=== PATIENT | male | born 1980 | race Caucasian/White ===

== ENCOUNTER 2023-10-04 20:06 | Inpatient (IN) | payer MEDICAID, OTHER, SELFPAY ==
[2023-10-04] VITALS (27 sets, daily range): BP systolic 133–165; BP diastolic 92–130; BMI 26.6
[2023-10-04] MEDS: DEXTROSE 50% SYRINGE 12.5 GRAMS IV (19:20)
[2023-10-04 19:24] LABS: Glucose - Point of Care 54 mg/dl (70-99)
--- NOTE | 2023-10-04 19:34 | ED.CVA ---
History of Present Illness
General
Chief Complaint: CVA/TIA Symptoms
Time Seen by Provider: 10/04/23 19:01
Onset of Stroke Symptoms
Onset of symptoms known: Yes
Date of onset of symptoms: 10/04/23
Time of onset of symptoms: 15:20
Time pt last seen normal is known: Yes
Date last time pt seen normal: 10/04/23
Time last time pt seen normal: 15:20
History of Present Illness
History of Present Illness:
HPI: Somewhere between 3:20 PM and 3:30 PM today, while talking on the phone at the [facility], the patient developed general unwell feeling including dysarthria, laid down and develop left upper extremity weakness along with
facial droop. The patient came in here by ambulance.
EXAM:
GENERAL: Well appearing in no distress
HEENT: Moist oral mucosa
CARDIOVASCULAR: No murmurs, normal heart rate, regular rhythm, No chest wall tenderness
PULMONARY: No respiratory distress, breath sounds are clear and equal
ABDOMEN: Soft with no peritoneal signs, no tenderness
NEUROLOGIC: Left lower facial droop, mild dysarthria, mild sensory deficits to the left upper extremity and left side of the face, normal [id number] in the right, some effort against gravity in the left upper extremity
PSYCHIATRIC: Appropriate mental status, normal insight and judgement
EXTREMITIES: Nontender, no edema, moves all extremities equally
SKIN: No rash, no lesions
TIME OF INITIAL ENCOUNTER: 7:20 PM
NUMBER AND COMPLEXITY OF PROBLEMS ADDRESSED AT THE ENCOUNTER
� Chronic conditions affecting care: High blood pressure, hyperlipidemia
� Acute Exacerbation and/or Progression of Chronic Illness: This is an acute problem
� Differential Diagnosis includes: CVA, hypoglycemia
AMOUNT AND/OR COMPLEXITY OF DATA TO BE REVIEWED AND ANALYZED
� I performed an independent evaluation of and my interpretation is:
EKG: The patient was sinus on the monitor
CT: CT suggests old right cerebellar infarct
X-rays:
Laboratory Studies: Blood sugar 54, CBC and chemistries unremarkable
Other:
� Review of other/old records: No old records available for review in [facility]
� Clinical information was obtained by an independent historian: Discussed with corrections officers at bedside however they were not there when the symptoms occurred
� Prescriptions/Medications Considered but not given:
� Further testing considered but not performed:
RISK OF COMPLICATIONS AND/OR MORBIDITY OR MORTALITY OF PATIENT MANAGEMENT
� Social determinants of health affecting care: Coming in from [facility]
� Discussion with other providers: I spoke to Dr. Terry agreed to try TNK.
� Escalation of care including admission/observation vs risk of discharge considered: Patient arrives with an NIH stroke scale of 7 TNK use including risks and benefits discussed with patient. Patient verbalized informed
consent. His blood sugar was low at 54 however approximately 15 to 20 minutes after the half amp of D50 was given, his symptoms persist. Noncontrast CT shows an old stroke however the patient states he has never had a stroke in the past.
Phy Exam
Physical Exam
Physical Exam:
See HPI
Course
Orders/Labs/Results
Orders:
Orders
10/04/23 19:01
CT Head W/o Cont STROKE ALERT Urgent
Comment:
Reason For Exam: unilateral weakness
CT Head/Neck Ang STROKE ALERT Urgent
Comment:
Reason For Exam: unilateral weakness
10/04/23 19:23
Dextrose 50%-Water [Dextrose 50% Syringe] 25 grams .ROUTE .STK-MED ONE
10/04/23 19:34
Dextrose 50%-Water [Dextrose 50% Syringe] 12.5 grams IV NOW STA
10/04/23 19:38
Tenecteplase [Tnkase] 21 mg Syringe [Syringe Non-Pump] 0 ml IV NOW
Provider explained risk/benefits to patient &/or caregiver?: Yes
Comment: ORDER VERIFIED
Blood pressure: 164/109
10/04/23 19:42
Electrocardiogram (*1) Urgent
Reason for Study: TIA/Stroke
EKG- Treatment ONCE
10/04/23 19:50
Basic Metabolic Panel Urgent
Complete Blood Count/With Diff Urgent
10/04/23 19:54
Admit/Transfer Patient As Directed
Co-Sign Provider:
Level of Care: Inpatient admission
Assign to:: ICU
Physician / Group: scout
Diagnosis: CVA
Reason for Hospitalization: CVA
Expected length of stay greater than two midnights?: Yes
ELOS- Estimated Length of Stay in days: 2
I certify the patient meets the requirements for IP care: Yes
Code Status As Directed
Resuscitation Status: Full Code
PRN Pain Medication Management As Directed
May give lesser potent ordered pain med per pt: Yes
preference::
Protocol:: Medication orders for pain may be administered in a
manner that supports deferring to patient preference
when the pt is:
- Requesting an ordered lesser potent pain medication.
Least to most potent pain medications are defined
as: acetaminophen < NSAID < tramadol < opioids
(morphine, oxycodone, hydromorphone).
- Requesting a lesser dose of the same medication IF
ORDERED.
- Requesting a less intrusive route of administration
if both routes are prescribed by the provider (PO <
IV).
10/04/23 20:19
Acetaminophen [Tylenol] 650 mg PO Q4HPRN PRN
Labetalol HCl [Trandate] 10 mg IV Q6HPRN PRN
10/04/23 20:19
Echo 2D MMode Color/Doppler Routine
Reason for Study: CVA
Comment: with bubble study
Electrocardiogram (*1) Routine
Reason for Study: TIA/Stroke
DIETARY CONSULT Routine
Reason for Consult: stroke/TIA
NEUROLOGY CONSULT Routine
Consulting Provider: Nya Reed
Was physician already notified: Yes
Glycohemoglobin (HgbA1c) Routine
Comment: If not done in the ED
MR Brain Without Contrast Routine
Comment: complete 24 hrs post tenecteplase admin &/or IAT
Reason For Exam: poss stroke, status post tenecteplase &/or IAT,
Recent pill cam endoscopy?: No
Accucheck [Bedside Glucose Monitoring] As Directed
Frequency: q4h
NIH Stroke Scale As Directed
Directions: Other
Comment: For Tenecteplase: NIH stroke Scale to be completed prior to administration, then every 1 hour for
2 hours, then every shift and with change in condition and/or mental status.
For IAT: NIH stroke scale to be completed at hand off, every 1 hour for 2 hours on arrival to ICU;
then every shift and with change in condition and/or mental status.
Neurological Checks As Directed
Frequency: Per unit guidelines
Additional Instructions:: after start of thrombolytic therapy and/or IAT:
q15min x 2 hrs, q30min x 6 hrs, q1h x 16 hrs, q4h x 24 hrs, then every shift and
with any changes.
Notify MD As Directed
Notify physician if: - Any deterioration, change in neurological status, development of severe headache,
nausea and vomiting, or with any signs of bleeding. (see guidelines for suspected
intracerebral hemorrhage).
- If intracranial hemorrhage is suspected or confirmed by imaging, anticipate need for
osmotic diuretic to maintain euvolemia.
Notify MD As Directed
Notify physician if: Glucose less than 70 or greater than 180.
Anticipate corrective insulin orders.
Notify MD As Directed
Notify physician if: unable to obtain MRI of head within 22-32 hours of tenecteplase administration and/or IAT
- contact Neurology for order for CT of head without contrast
Patient Education As Directed
Type: Stroke education packet
Comment: provide to patient and family
Pneumatic Compression Sleeves As Directed
Type: Knee high
Precautions As Directed
Type of Precautions: Bleeding
Comment: post Bleeding Precaution sign at bedside (if patient received tenecteplase)
Swallow Screening CVA/TIA ONLY As Directed
Comment: NPO until swallow screening completed
If patient FAILS swallow screening:: NPO and Speech consult and aspiration precautions
If patient PASSES swallow screening, diet:: NPO
Thrombolytic Precautions As Directed
Thrombolytic Precautions:: [place] bleeding precautions. Minimize invasive procedures and venipunctures,
avoid IM injections and over-handling patient, and check all puncture sites for
bleeding. Assess the patient and notify provider for signs and symptoms of
internal or serious bleeding, such as changes in vital signs or evidence of blood
in the urine or stool.
Additional instructions: Hemocult all stools.
Apply direct pressure or pressure dressing to any compressible puncture sites.
No ABG sampling or Hale insertion after Tenecteplase administration for 24 hours,
unless directed by the Neurologist/Attending.
Vital Signs As Directed
Frequency: q15m
Call for:: BP greater than 180/105 mmHg or less than 100/60 mmHg
Additional Instructions:: after start of thrombolytic therapy and/or IAT:
q15min x 2 hrs, q30min x 6 hrs, q1h x 16 hrs, q4h x 24 hrs, then every shift and
with any changes.
Ot Eval And Treat Routine
Pt Eval And Treat Routine
Activity Level: As Tolerated
Speech Therapy Eval & Treat Routine
DX Deep Vein Thrombosis Video Routine
10/05/23 06:00
Basic Metabolic Panel IN AM
Cardiovascular Evaluation IN AM
Complete Blood Count/No Diff IN AM
PTT IN AM
Prothrombin Time IN AM
Abnormal Lab Results
10/04/23
19:21
POC Glucose 54 L* mg/dl
(70-99)
10/04/23 19:50
10/04/23 19:50
Vital Signs
Initial and Last Documented VS:
Initial Vital Signs
Temp Pulse Resp BP Pulse Ox
98.5 F 73 16 164/109 100
10/04/23 19:20 10/04/23 19:20 10/04/23 19:20 10/04/23 19:20 10/04/23 19:20
Last Documented Vital Signs
Temp Pulse Resp BP Pulse Ox
98.5 F 64 16 160/112 97
10/04/23 19:20 10/04/23 21:32 10/04/23 21:32 10/04/23 21:32 10/04/23 21:30
*Critical Care Note
Total Time (30-74mins, 75-104mins- exclusive of procedures): 40 minutes
comment:
The patient was sent to CT immediately upon arrival. Upon my initial evaluation he has a structural 7. I had multiple discussions with neurology, Dr. Reed. Ultimately decision was made to give TNK. Glucose was low however despite treatment
with dextrose his symptoms persist. I am concerned for an acute CVA. No hemorrhage seen on initial CT. He was hypertensive upon arrival.
ED Attending Note
-
Portions of this chart may have been created with voice recognition software.� Occasional wrong word or��sound alike� substitutions may have occurred due to the inherent limitations of voice recognition software.
Discharge Plan
Departure
Patient Disposition: Admit
Date of Disposition: 10/04/23
Time of Disposition: 19:38
Presentation/result/management discussed w/ accepting MD/DO: Hospitalist
Discharge Problem:
Acute cerebrovascular accident (CVA)
Interventions
Interventions:
*Risk Screen - Suicide Last Done: 10/04/23 19:20
*General Assessment Last Done: 10/04/23 19:20
*Neglect/Abuse Screening Last Done: 10/04/23 19:20
ED- Fall Risk Assessment Last Done: 10/04/23 19:59
*ED COVID-19 Vaccine History Last Done: 10/04/23 19:41
*Nursing Disposition Last Done: 10/04/23 20:25
ED- Pulmonary Assessment Last Done: 10/04/23 19:58
ED- Neurological Assessment Last Done: 10/04/23 19:29
ED- Cardiac Assessment Last Done: 10/04/23 19:58
Discharge Date and Time
Discharge Date/Time: 10/04/23 20:25
[2023-10-04] MEDS: TNKASE 4.2 MG IV (19:46)
[2023-10-04 19:54] LABS: % Basophils 0.8 % (0-2); % Eosinophils 4.4 % (0-6); % Immature Granulocytes 0.3 % (0-0.5); % Lymphocytes 21.7 % (20.5-51.1); % Monocytes 6.2 % (1.7-9.3); % Neutrophils 66.6 % (42.2-75.2); Absolute Basophils 0.1 10^3/uL (0-0.2); Absolute Eosinophils 0.4 10^3/uL (0-0.7); Absolute Monocytes 0.6 10^3/uL (0.1-0.6); Hematocrit 40.5 % (39.0-52.0); Mean Corp Hgb Conc. 34.6 g/dL (33.0-37.0); Mean Corpuscular Hgb 28.1 pg (27.0-31.0); Mean Corpuscular Volume 81.2 fL (80.0-94.0); Nucleated Red Blood Cells % 0 % (-); Platelet Count 325 10^3/uL (130-400); Red Blood Cell Count 4.99 10^6/uL (4.70-6.10)
--- NOTE | 2023-10-04 20:02 | HPS.HSE ---
Family Physician
-
Family Physician: [facility] [place] [facility] [facility]
Chief Complaint
-
facial droop
History of Present Illness
43-year-old male past medical history of HTN, presenting with headache, difficulty speaking, left upper extremity weakness and left-sided facial droop and drooling at around 3:30 PM today while talking on the phone. He did have some blurriness from
the left eye. He denies any lower extremity weakness or numbness. Denies any dizziness or vertigo. Denies any chest pain or shortness of breath. He denies any history of cardiac problems or stroke.
He smokes 2 packs of cigarettes a day. He used to snort opiates in the past but has not used drugs in more than a year.
He denies alcohol.
No family history of strokes.
He states that he has a history of fluctuating blood pressures.
Medical History
Past Medical History
Past Medical History: Reports HTN
Past Surgical History: Reports Other (clavicle surgery )
Social History
Tobacco: Smoker
Alcohol: None
Drug: Narcotics
Family History
Family History: Not pertinent
Allergies / Home Medications
Allergies reflects when Allergies were last updated in [employer].
Home Medications with original date entered in [employer]
Allergy/Medication List:
Allergies
Allergy/AdvReac Type Severity Reaction Status Date / Time
No Allergy Information Allergy Unverified 10/04/23 19:38
Available
Review of Systems
-
History Source: Patient
A 12 point ROS was completed and negative except as noted: Yes
Constitutional: Reports No Symptoms
EENT: Reports No Symptoms
Respiratory: Reports No Symptoms
Cardiac: Reports No Symptoms
Abdomen/GI: Reports No Symptoms
: Reports No Symptoms
Musculoskeletal: Reports No Symptoms
Skin: Reports No Symptoms
Neurological: Reports See HPI
Endocrine: Reports No Symptoms
Hematologic/Lymphatic: Reports No Symptoms
Psych: Reports No Symptoms
Physical Exam
Vital Signs
Vital Signs
Temp Pulse Resp BP Pulse Ox
98.5 F 77 14 165/103 98
10/04/23 19:20 10/04/23 20:00 10/04/23 20:00 10/04/23 19:47 10/04/23 20:00
Physical Exam
General: Well Developed, Well Nourished and No Apparent Distress
HEENT: NormoCephalic, Moist mucous membranes and Atraumatic
Respiratory: Clear
Cardiac: S1/S2 and Regular Rhythm; No Murmur or Rub
GI: Soft, Non Tender, Non Distended and Normal Bowel Sounds; No Organomegaly
Rectal: Deferred by Provider
Musculoskeletal: No Clubbing, No Cyanosis and No Edema
Skin: No Rash
Neuro: Nonfocal/grossly intact and Other (NIH of at least 5 (left facial droop, left upper extremity weakness, dysarthria, decreased sensation left upper extremity) )
Laboratory Results
-
10/04/23 19:50
Data Reviewed
-
Lab Data: Labs Reviewed by me
Old Records: Reviewed
Impression/Plan
-
IMPRESSION:
PLAN:
# Acute right hemispheric CVA
-Significant left facial droop and weakness of left upper extremity, decreased sensation left upper extremity and dysarthria
-CT head shows focal area of encephalomalacia in the right superior cerebellar hemisphere compatible with old infarction
-TNK being given
-Goal blood pressure under 180/105
-CTA head and neck shows no significant narrowing of the carotid arteries, normal anterior/middle cerebral arteries, small caliber right vertebral, basilar artery
-Check MRI brain
-Check A1c and lipid panel
-Neurochecks per protocol
-Neurology consulted
-Check speech and swallow evaluation,
-Check echo
-N.p.o.
-PT/OT
# Hypoglycemia
-Blood sugar 54
-1/2 Amp of dextrose given, recheck blood sugar
-Accu-Cheks every 2 hours
Essential hypertension
-Continue lisinopril
-As needed as needed labetalol to keep blood pressure under 180
Active smoker
-Nicotine patch
Former opiate user
Full code
DVT prophylaxis�SCDs
N.p.o.
--- NOTE | 2023-10-04 20:03 | PHANOTE ---
med rec kirstin(10/04/23)-[facility] was called for medication list. Attempted to get list over the phone, but decided it was safer to fax list over given clonidine taper. Rest of list pending fax.
[2023-10-04 20:27] LABS: Blood Urea Nitrogen 11 mg/dl (9-20); Calcium 9.5 mg/dl (8.4-10.2); Carbon Dioxide 28 mmol/L (22-30); Chloride 101 mmol/L (98-107); Estimated Creatinine Clearance 108 ml/min; Glucose 87 mg/dl (70-99); Potassium 4.3 mmol/L (3.5-5.1); Sodium 137 mmol/L (135-145); eGFR > 60.00
[2023-10-04 20:38] LABS: Glucose - Point of Care 87 mg/dl (70-99)
--- NOTE | 2023-10-04 22:00 | PTCARENOTE ---
pt arrived to floor via stretcher, able to move from stretcher to bed independently, AAOx4, c/o headache PRN IV tylenol given see MAR, L facial droop and L sided weakness, decreased sensation, see flow sheet, NIH 8 on arrival to ICU, 2 peripheral
EMS lines, RA 95%, denies SOB, NPO, urinal at bedside.
[2023-10-04] MEDS: OFIRMEV 100 IV (22:30)
[2023-10-04 23:49] LABS: Glucose - Point of Care 90 mg/dl (70-99)
[2023-10-05] VITALS (48 sets, daily range): BP systolic 111–168; BP diastolic 68–131; BMI 25.9
[2023-10-05] MEDS: DILAUDID 0.25 MG IV (00:51)
--- NOTE | 2023-10-05 02:13 | PTCARENOTE ---
pt continues to complain about 10/10 headache, pain meds given see MAR, with no relief, CT head ordered and completed, denies chest pain and SOB.
[2023-10-05] MEDS: DILAUDID 0.5 MG IV ×2 (03:32→12:48)
[2023-10-05 03:37] LABS: Hematocrit 38.3 % (39.0-52.0); Hemoglobin 13.5 g/dL (13.0-18.0); Mean Corp Hgb Conc. 35.2 g/dL (33.0-37.0); Mean Corpuscular Hgb 27.8 pg (27.0-31.0); Mean Platelet Volume 9.9 fL (7.4-10.4); Platelet Count 298 10^3/uL (130-400); Red Blood Cell Count 4.85 10^6/uL (4.70-6.10); Red Cell Dist. Width 13.2 % (11.5-14.5); White Blood Cell Count 10.1 10^3/uL (4.8-10.8)
[2023-10-05 03:42] LABS: Glucose - Point of Care 98 mg/dl (70-99)
[2023-10-05 03:50] LABS: APTT 37.4 Sec (23.4-35.0); INR 1.14; PT 14.7 Sec (11.4-14.6)
[2023-10-05 04:01] LABS: Blood Urea Nitrogen 12 mg/dl (9-20); Calcium 9.9 mg/dl (8.4-10.2); Carbon Dioxide 28 mmol/L (22-30); Chloride 105 mmol/L (98-107); Estimated Creatinine Clearance 122 ml/min; Glucose 89 mg/dl (70-99); HDL Cholesterol 35 mg/dl; LDL Cholesterol, Calculated 80 mg/dl; Sodium 140 mmol/L (135-145); Total Cholesterol 146 mg/dl (50-199); Triglyceride 155 mg/dl (10-149); Very Low Density Lipoprotein 31 mg/dl (0-30); eGFR > 60.00
--- NOTE | 2023-10-05 04:17 | PTCARENOTE ---
no changes from prior assessment
--- NOTE | 2023-10-05 07:24 | CON.INTV ---
Consultation
Consultation Request
Date/Time Consultation Requested: 10/05/23
Date/Time Consultation Performed: 10/05/23
Performing Provider: [place]
Reason for Consultation: ICU
Medical History
-
History of Present Illness:
Patient is a 43-year-old male with previous history of hypertension, presenting with left upper extremity and left-sided facial droop. This is associated with headache, difficulty with speaking, blurriness from left eye. CT head obtained
demonstrating old CVA and acute right hemispheric CVA. TNK was delivered in the ER. He is now admitted to ICU for further management.
.
Past Medical History
Past Medical History: Other (see list below)
Social History
Tobacco: Non-smoker
Alcohol: None
Drug: Former User
Family History
Family History: Reviewed & Not Pertinent
Allergies / Home Medications
Allergies
Allergy/AdvReac Type Severity Reaction Status Date / Time
No Known Allergies Allergy Verified 10/04/23 20:21
Home Medications
�Medication �Instructions �Recorded �Confirmed �Last Taken �Type
atorvastatin 40 mg tablet 40 mg PO HS 10/04/23 10/04/23 Unknown History
clonidine HCl mg PO .TAPER 10/04/23 Unknown History
lisinopril 20 mg tablet 20 mg PO DAILY 10/04/23 10/04/23 Unknown History
Review of Systems
-
History Source: Patient
All other systems: Negative unless noted
Vitals / Labs / Diagnostic Testing
Vital Signs
Temp Pulse Resp BP Pulse Ox
98.3 F 57 13 143/93 96
10/04/23 23:24 10/05/23 07:00 10/05/23 07:00 10/05/23 07:00 10/05/23 06:30
Lab Data
10/05/23 03:28
10/05/23 03:28
Laboratory Results
10/05/23
03:28
PT 14.7 H
INR 1.14
APTT 37.4 H
Diagnostic Testing:
Physical Exam
-
HEENT: Normocephalic, Anicteric, Moist Mucous Membranes and Other (facial droop)
Cardiovascular: S1/S2 and Regular Rhythm
Respiratory: Clear and Non-Labored Respirations
GI: Soft, Non Distended and Non Tender
Neurology: Awake, Alert, Oriented and Other (L sided weakness, L sided facial droop with tongue deviation)
Skin: Warm, Dry and Good Color
General: Comfortable and Other (NAD)
Assessment
-
Patient is a 43-year-old male with previous history of hypertension, presenting with left upper extremity and left-sided facial droop. This is associated with headache, difficulty with speaking, blurriness from left eye. CT head obtained
demonstrating old CVA and acute right hemispheric CVA. TNK was delivered in the ER. He is now admitted to ICU for further management.
Acute right hemispheric CVA status post TNK 10/04/2023
Prior old right superior cerebellar CVA with associated encephalomalacia on CT
Acute left-sided facial droop and left upper extremity weakness
Current smoker, 2 packs/day
Hypertensive urgency
Meningioma on CT
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
Hypertension
Hyperlipidemia
History of recreational opiate use
Plan
No current signs of metabolic encephalopathy or MS changes/following commands
Still with L sided weakness, L sided facial droop s/p TNK
CT imaging reviewed, planning for MRI today
Ongoing ROBERTS, 11/28, possible drug seeking behavior
Pain/sedation: tylenol elzbieta, add toradol, would not give further opiate as low dose PRN not working
RASS goals: 0
Hemodynamically stable, not requiring pressors.
Cardiac history reviewed--HTN
No prior ECHO for review, new study pending
Resume home meds, BP parameters
Monitor on telemetry
Oxygen needs: stable on RA
Prior history of lung disease: none known, but is current 2 PPD smoker
Supplemental O2 as indicated to maintain sats > 89%
CXR reviewed indicating no acute disease, has small nodules noted (on my read/await formal read)
Will need CT chest as OP
NPO, resume diet when able
Senior Storage Engineer recommendations
Aspiration precautions, HOB > 30 degrees
Speech therapy eval can be considered if at elevated risk
GI prophylaxis if indicated for mechanical ventilation >48 hours, prior history of GERD, stress ulcer formation in the critically ill
Creat at baseline, no history of renal disease
Void trials
Follow urine output, critical I/Os
Replete electrolytes as needed
No signs/symptoms suspicious for infectious etiology at this time
Observe off antibiotics for now
Follow fever trend, WBC count
CBC stable, no signs of bleeding or coagulopathy.
DVT prophylaxis as assessed based on risk, including mechanical SCDs
Can transfuse if indicated for Hb <7, plt < 10
No prior h/o diabetes or thyroid disease
Monitor accuchecks PRN/SS coverage if needed
We will follow
Diagnostic Data
Chest X-Ray: NAD, small calcified areas on LLLs
CT Scan: HEAD 10/05/23 - No acute abnormality or substantial interval change since 10/04/2023. Stable extra-axial mass in the left frontotemporal region which is favored to represent a small meningioma.
H&N 10/04/23- No significant narrowing of the common carotid arteries, carotid bulbs, or cervical internal carotid arteries bilaterally. Calcification of the cavernous internal carotid arteries bilaterally, left greater than right. No evidence for
hemodynamically significant stenosis. Normal appearance of the anterior cerebral and middle cerebral arteries bilaterally.
Dominant left vertebral artery with small caliber right vertebral artery, with the right vertebral artery terminating as the posterior inferior cerebellar artery. As there is evidence for old right cerebellar hemisphere infarct on unenhanced CT,
question whether findings in the right vertebral artery could be from previous dissection.
Dominant left vertebral artery with no significant narrowing. Relatively small caliber basilar artery with no significant narrowing. The posterior cerebral arteries are mainly supplied from posterior communicating arteries, and the posterior
cerebral arteries appear within normal limits.
There is an enhancing extra-axial mass in the left anterolateral frontal lobe, which is likely a small meningioma. Consider follow-up imaging with CT or MRI of the head/brain without and with contrast.
Head 10/03- Focal area of encephalomalacia in the right superior cerebellar hemisphere, compatible with old infarction. No evidence for acute intracranial abnormality.
Echo:
PFT's:
Reports and relevant images were personally reviewed.
-----
Critical Care time 56 mins -- The patient is admitted for acute critical illness for the treatment of vital organ failure and/or prevention of further life-threatening conditions. Total care includes time spent in review of history, physical exam,
medications, hemodynamic/ventilator parameters, laboratory data, imaging and discussion with house staff, pharmacy, respiratory therapy, typewriter ribbon winder, and nursing.
--- NOTE | 2023-10-05 07:30 | PTCARENOTE ---
0700 seen in bed. NIH 8 . VSS NPO until clear by ST
[2023-10-05 08:46] LABS: Glucose - Point of Care 91 mg/dl (70-99)
--- NOTE | 2023-10-05 09:30 | CON.NEURO4 ---
Addendum entered and electronically signed by Nya Reed, 10/05/23 21:45:
Changed order to rectal ASA as patient is still NPO.
Addendum entered and electronically signed by Nya Reed, DO 10/05/23 21:42:
Echo showed:
Interatrial septum is intact with no evidence of shunting by Bubble study or
color flow Doppler. The IVC is of normal size and demonstrates normal
respiratory variation. No intracardiac mass or thrombus formation seen.
MRI still pending.
Will start DAPT now as exam has been stable.
Original Note:
Consultation - Neurology 4
-
CONSULTING PHYSICIAN: Derek
REFERRING PHYSICIAN: ER
DICTATED BY: Derek
DATE/TIME OF REQUEST: 10/04/23 in the evening
DATE/TIME OF CONSULTATION: 10/05/23 at 9am
Reason for Consultation: stroke alert
History of Present Illness:
43-year-old male with a past medical history of drug use, hypertension and possible hyperlipidemia is currently incarcerated brought in as a stroke alert yesterday after experiencing abrupt onset of dysarthria, left upper extremity weakness and left
facial droop around 3:20 or 3:30 PM today while talking on the phone to his grandchildren. He states that just prior to onset of his symptoms he was speaking normally. Chronic right superior cerebellar hemisphere infarct was seen on head CT
patient states that he was not aware of this and never had similar symptoms in the past. He states that he has never had any imaging done of his brain for comparison. No family history of AZ or stroke. No history of endocarditis. He denies any
IV drug use and records indicate that he snorted opiates in the past. Last drug use was about 14 months ago. He received TNK in the ED and reports that his symptoms are now better. He also has a headache. Repeat head CT done around 130 this
morning was stable. He denies any past history of headaches. He also denies any history of dissection.
Past Medical History: HTN, denies HLD but is on a statin, chronic stroke on HCT of which patient was not aware, small meningioma seen on HCT as well
Past Surgical History: clavicle surgery
Social History
Tobacco: Smoker
Alcohol: None
Drug: Narcotics--reports he snorted opiates; denies IVDA
Family History
Family History: denies any family history of stroke or AZ/CAD
Allergies
No Known Allergies Allergy (Verified 10/04/23 20:21)
Home Medications
�Medication �Instructions �Recorded
atorvastatin 40 mg tablet 40 mg PO HS 10/04/23
clonidine HCl mg PO .TAPER 10/04/23
lisinopril 20 mg tablet 20 mg PO DAILY 10/04/23
Review of Symptoms:
Patient denies any fever, headache, chest pain, shortness of breath, GI or symptoms.
�Per the HPI.�All systems are reviewed negative except above.
Vital Signs
Temp Pulse Resp BP Pulse Ox
98.0 F 70 14 143/93 97
10/05/23 07:30 10/05/23 07:15 10/05/23 07:15 10/05/23 07:01 10/05/23 07:15
Lab Results
10/05/23 03:28
10/05/23 03:28
PT 14.7 Sec (11.4-14.6) H 10/05/23 03:28
INR 1.14 10/05/23 03:28
APTT 37.4 Sec (23.4-35.0) H 10/05/23 03:28
Sodium 140 mmol/L (135-145) 10/05/23 03:28
Potassium 4.0 mmol/L (3.5-5.1) 10/05/23 03:28
BUN 12 mg/dl (9-20) 10/05/23 03:28
Glucose 89 mg/dl (70-99) 10/05/23 03:28
Calcium 9.9 mg/dl (8.4-10.2) 10/05/23 03:28
LDL Cholesterol, Calc 80 mg/dl 10/05/23 03:28
Physical Exam:
The patient is afebrile, heart sounds S1 and S2 are regular , and chest is clear to auscultation bilaterally.
NIH Stroke Scale:
I performed the NIH stroke scale on the patient on 10/05/23 at 900. The patient scored 8 points on the NIH stroke scale assessment, which were assigned as follows: see attached
Neurologic Examination:
The patient is awake, alert and oriented x 3. He is able to follow commands and answer questions appropriately. There is no aphasia; reports some mild dysarthria compared to baseline speech. On cranial nerve assessment, pupils are 3 mm bilateral,
round and reactive to light and accommodation. Visual beard are full. Extraocular movements are intact. Reports diminished sensation on R forehead. +Mild L facial weakness--central. Hearing is intact bilaterally to normal conversation volume.
Tongue palate and uvula are midline. Sternocleidomastoid strengths are full bilaterally. Some giveaway weakness in LUE--unclear if component of diminished effort; 2/5 in LUE, 2-3/5 in LLE. R side full. Deep tendon reflexes are 2+ bilateral upper
and lower extremities and Babinski is absent bilaterally. Sensations of touch, temperature are intact and bilaterally symmetrical. There was no extinction noted on double simultaneous stimulation. Coordination is intact by finger to nose in RUE;
could not test LUE due to severity of weakness.
Neuro Imaging:
Initial HC, 10/03
Focal area of encephalomalacia in the right superior cerebellar hemisphere, compatible with old infarction.
No evidence for acute intracranial abnormality.
F/u HCT done early this AM (1:30) due to patient headache:
No acute abnormality or substantial interval change since 10/04/2023. Stable extra-axial mass in the left frontotemporal region which is favored to represent a small meningioma.
CTA head/neck:
No significant narrowing of the common carotid arteries, carotid bulbs, or cervical internal carotid arteries bilaterally.
Calcification of the cavernous internal carotid arteries bilaterally, left greater than right. No evidence for hemodynamically significant stenosis.
Normal appearance of the anterior cerebral and middle cerebral arteries bilaterally.
Dominant left vertebral artery with small caliber right vertebral artery, with the right vertebral artery terminating as the posterior inferior cerebellar artery. As there is evidence for old right cerebellar hemisphere infarct on unenhanced CT,
question whether findings in the right vertebral artery could be from previous dissection.
Dominant left vertebral artery with no significant narrowing. Relatively small caliber basilar artery with no significant narrowing. The posterior cerebral arteries are mainly supplied from posterior communicating arteries, and the posterior
cerebral arteries appear within normal limits.
There is an enhancing extra-axial mass in the left anterolateral frontal lobe, which is likely a small meningioma.
Impression:
LUISA KRAUS is a 43 year old M who has presented to the hospital with dysarthria, facial weakness and L sided weakness of abrupt onset yesterday at 3:20PM while talking on the phone. HCT showed evidence of a chronic stroke of which was not
aware/never had symptoms. Reports that he has never had any prior cranial imaging for comparison. Has a history of drug use; states no drug use in about 14 months. Denies any past IVDA.
Differentials for the patient's presentation include:
1. acute ischemic stroke; etiology unclear; no fever, denies IVDA; reports no drug use in general in about 14 months; has htn, ?HLD and smoking history in terms of vascular risk factors
2. hypertensive urgency/hypoglycemia causing stroke recrudescence; chronic stroke seen on HCT of which patient was not aware
Patient has the following risk factors for their symptoms: htn, hld
IV Tenecteplase/IAT candidacy: received TNK, no LVO for IAT
Recommendations:
� place the patient in medical ICU
� goal blood pressure over the next 24 hours s/p TNK would be less than 180/105 mmHg; after which time goal is normotension
� check MRI of the brain within 22-32 hours of TNK without contrast for localization of the stroke; will do this w/wo give ?meningioma
reviewed CTA; see above
� hold all antiplatelets, OAC meds, DOAC meds, heparinoids for next 24 hours; can start DAPT at 24 hour tali if MRI negative for bleed
� start atorvastatin 80 mg at bedtime when patient is able to take PO; LDl is 80 on atorvastatin 40mg as outpatient
� goal blood glucose levels for patient would be less than 180 mg/dL
� Speech, PT, OT evaluations needed
� Physiatry consultation warranted
� DVT prophylaxis with sequential compression devices over next 24 hours, can be started on Enoxaparin subcutaneous for DVT prophylaxis beginning 24 hours after TNK provision.
� medical educational materials will be provided
� check an echocardiogram; low threshold of NIRAV given age depending upon results
continue telemetry monitoring
� smoking cessation
Total Critical Care Time= 65 minutes.
Also discussed with family.
We will follow.
Discussed patient care with: ER, patient
NIH Stroke Scale
NIH Stroke Score
Date of Subsequent NIH Scale: 10/05/23
Time of Subsequent NIH Scale: 09:00
Level of Consciousness: 0 - Alert
LOC Questions: 0-Answers both correctly
LOC Commands: 0-Performs both correctly
Best Horizontal Gaze: 0-Normal
Visual Beard: 0=Normal, no visual loss
Facial Palsy: 1=Minor paralysis
Motor - Right Arm: 0=No drift 10 seconds
Motor - Left Arm: 3=None vs. gravity
Motor - Right Le-No drift 5 seconds
Motor - Left Le-Partial vs. gravity
Limb Ataxia: 0-Absent
Sensation: 1-Mild loss
Best Language: 0-No aphasia
Dysarthria: 1-Mild slurring
Extinction and Inattention: 0-No abnormality
Total Score:: 8
[2023-10-05] MEDS: OFIRMEV 100 IV (09:48)
[2023-10-05 10:12] LABS: Glycohemoglobin (HgbA1c) 5.3 % (4.0-5.6)
--- NOTE | 2023-10-05 11:28 | CM ---
CM following re: discharge planing.
Reviewed pt's chart, met with pt. Two security guards at bedside.
Pt is a 43 year old male, admitted with primary dx of Acute right hemispheric CVA.
Pt is admitted from [facility] and per guards pt will return back there upon the discharge.
[facility] nursing report: [phone]
Discharge instructions fax: [phone]
D/C plan: return back to [facility]. Guards to transport.
--- NOTE | 2023-10-05 11:39 | PTOTSP ---
SPEECH THERAPY SWALLOW AND SPEECH/LANGUAGE/COGNITIVE COMMUNICATION EVALUATION:
Patient exhibits grossly functional oropharyngeal swallow at this time. No history of dysphagia noted. Patient remains at risk for aspiration and related complications give suspected acute CVA and Left sided oral/lingual/labial weakness. Recommend
Regular texture solids, thin liquids. Medications whole with liquid as best tolerated. Aspiration precautions: Upright positioning; Small single sips/bites; Slow rate of intake; Check for pocketing on Left; Finger/lingual sweep as needed; Chew
thoroughly. Monitor for signs/symptoms of aspiration. Speech therapy to follow, assess diet tolerance and modify as appropriate, determine indication for VSE if warranted, provide education regarding aspiration risks/precautions, and provide
continued diagnostic swallow therapy as appropriate.
Patient exhibits mild dysarthria related to Left sided lingual/labial and oromotor weakness with grossly functional intelligibility; Expressive/receptive language and cognitive communication skills appeared grossly intact at this time. Patient
reported he feels at baseline level of functioning cognitively. Speech therapy to follow for dysarthria treatment and further assessment of higher level cognitive functioning.
RECOMMEND:
1) Regular texture diet, thin liquids
2) Medications whole with liquid as best tolerated
3) Aspiration precautions: Upright positioning; Small single sips/bites; Slow rate of intake; Check for pocketing on Left; Finger/lingual sweep as needed; Chew thoroughly. Monitor for signs/symptoms of aspiration
4) ST to follow for swallow and speech therapy
[2023-10-05] MEDS: COMPAZINE 5 MG IV (11:49)
--- NOTE | 2023-10-05 13:35 | PTCARENOTE ---
patient in bed . Able to tolerate food and fluids without difficulties. no change in Neuro check and NIH noted . Still noting left site facial droop, unable to lift left arm and left leg. c/o of headache bilateral 10 out 10 pain scale level .
Describes pain in a from and back of his head , aching. Compazine + Dilaudid 0.5 adm with no pain relieve BP 125/100 HR 74.
[2023-10-05] MEDS: REGLAN 10 MG IV (14:20)
[2023-10-05] MEDS: TORADOL 15 MG IV (14:20)
--- NOTE | 2023-10-05 14:22 | PTCARENOTE ---
c/of head pain front and back pain scale level 7 out of 10. Reglan and Toradol adm . No change in neuro check noted
--- NOTE | 2023-10-05 15:42 | W.PN.HOSP.TC ---
Today's Communication/Plan
-
MRI - DAPT most likely thereafter
Reg diet
close tele monitoring
remain in icu today
Assessment / Plan
Assessment / Plan
# Acute right hemispheric CVA s/p TNK 10/03
-Significant left facial droop and weakness of left upper extremity, decreased sensation left upper extremity and dysarthria
-CT head shows focal area of encephalomalacia in the right superior cerebellar hemisphere compatible with old infarction
-Goal blood pressure under 180/105
-CTA head and neck shows no significant narrowing of the carotid arteries, normal anterior/middle cerebral arteries, small caliber right vertebral, basilar artery
-Check MRI brain; DAPT after if no major bleeding
-Check A1c:: 5.3 and LDL 80
-statin
-Neurochecks per protocol
-Neurology consulted
-PT/OT
Essential hypertension
-As needed as needed labetalol to keep blood pressure under 180
Active smoker
-Nicotine patch
Former opiate user
Full code
DVT prophylaxis�SCDs
Anticipated Discharge: > 48 hours
Subjective/Interval History
-
Date of Service: October 05, 2023
No acute events status post TNK
Objective Data
-
Labs:
Laboratory Results
10/05/23
03:28
PT 14.7 H
INR 1.14
APTT 37.4 H
Sodium 140
Potassium 4.0
Chloride 105
Carbon Dioxide 28
BUN 12
Creatinine 0.8
Glucose 89
Calcium 9.9
Vital Signs:
Vital Signs
Temp Pulse Resp BP Pulse Ox
98.0 F 84 20 168/114 98
10/05/23 07:30 10/05/23 15:15 10/05/23 15:15 10/05/23 15:00 10/05/23 15:15
I&O
10/04/23 10/05/23 10/06/23
06:59 06:59 06:59
Intake Total 0 / 0
Output Total 600 / 600 500 / 500
Balance -600 / -600 -500 / -500
Review of Systems
-
History Source: Patient
All other systems: Not reviewed unless documented
Data Reviewed
-
Diagnostic Radiology: Image personally visualized and interpreted and Report Reviewed by me
CT Scan: Image personally visualized and interpreted and Report Reviewed by me
Labs: Labs Reviewed by me
--- NOTE | 2023-10-05 16:05 | PTCARENOTE ---
Spoke to [facility] medical staff . Been reported that patient received Soboxone 12mg x 2 days; 8mg x 2 days; 4mg x 2 days and 2mg x 2 days Last dose of Sobaxone was received on 10/01 . Clonidine x 1 dose received on 10/03 .
patient have been asking for dose of Sobaxone every 30 mint to every hour. Stating that he feels as ' he is going through withdrawal '
[2023-10-05] MEDS: SUBUTEX 4 MG SL ×2 (16:54→22:49)
[2023-10-05] MEDS: TYLENOL 1000 MG PO (17:01)
[2023-10-05 17:08] LABS: Amphetamines Negative (Negative); Barbiturates Negative (Negative); Benzodiazepines Negative (Negative); Buprenorphine Positive (Negative); Cocaine Negative (Negative); Marijuana Negative (Negative); Methadone Negative (Negative); Methamphetamines Negative (Negative); Opiates Positive (Negative); Phencyclidine Negative (Negative); Tricyclic Antidepressants Negative (Negative)
[2023-10-05 17:14] LABS: Fentanyl, Urine Negative (Negative)
[2023-10-05] MEDS: TRANDATE 10 MG IV (17:14)
[2023-10-05 18:13] LABS: Glucose - Point of Care 138 mg/dl (70-99)
--- NOTE | 2023-10-05 18:16 | PTCARENOTE ---
patient in bed. Labetolol given earlier for BP 165/112 . ECG done Urine toxic screen send results pending . patient denies headache no change in Neuro check noted MRI schedule for 2100
--- NOTE | 2023-10-05 20:20 | PTCARENOTE ---
Received patient AAOx3, following commands, denying pain. Left facial droop, left arm/leg flaccid, can wiggle fingers and toes. Decreased sensation on left side. NIH handoff done, 9. MRI at 2100. Normal sinus, 70s, BP stable, 150s-160s/80s-90s. 97%
on room air, lung sounds clear throughout, diminished in the bases. Abdomen soft, round, nontender, positive bowel sounds. Urinal to void, no BM yet this admission. Skin intact, PIV WNL, patent. Call lozoya within reach.
[2023-10-05] MEDS: TYLENOL PO ×2 (22:47→22:51)
[2023-10-05] MEDS: LOW STRENGTH ASPIRIN 81 MG PO (23:18)
--- NOTE | 2023-10-05 23:21 | PTCARENOTE ---
Transported patient to and from MRI without any issues. MRI read, neuro notified, aspirin started. PRN subutex given. Otherwise patient assessment unchanged from previous.
[2023-10-06] VITALS (16 sets, daily range): BP systolic 107–152; BP diastolic 64–103; PULSE 70–71; O2SAT 99; BMI 26.1
[2023-10-06] MEDS: SUBUTEX 4 MG SL ×2 (04:56→11:11)
[2023-10-06] MEDS: TYLENOL PO ×3 (05:14→17:18)
[2023-10-06 05:45] LABS: ALT (SGPT) 15 U/L (0-50); AST (SGOT) 17 U/L (17-59); Alkaline Phosphatase 70 U/L (38-126); Blood Urea Nitrogen 13 mg/dl (9-20); Calcium 9.8 mg/dl (8.4-10.2); Carbon Dioxide 27 mmol/L (22-30); Chloride 104 mmol/L (98-107); Direct Bilirubin 0.1 mg/dl (0.0-0.4); Estimated Creatinine Clearance 108 ml/min; Glucose 98 mg/dl (70-99); Potassium 4.2 mmol/L (3.5-5.1); Sodium 140 mmol/L (135-145); Total Bilirubin 0.5 mg/dl (0.2-1.3); Total Protein 6.2 g/dl (6.3-8.2); eGFR > 60.00
--- NOTE | 2023-10-06 07:24 | W.PN.INTV ---
Today's Communication / Plan
Recommendations
s/p TNK, MRI stable
Continue meds for ROBERTS pain
Opiate w/d protocol
PT/OT, speech evals ongoing
Transfer to tele, we will sign off upon transfer
Assessment
-
Patient is a 43-year-old male with previous history of hypertension, presenting with left upper extremity and left-sided facial droop. This is associated with headache, difficulty with speaking, blurriness from left eye. CT head obtained
demonstrating old CVA and acute right hemispheric CVA. TNK was delivered in the ER. He is now admitted to ICU for further management.
Acute right hemispheric CVA status post TNK 10/04/2023
Prior old right superior cerebellar CVA with associated encephalomalacia on CT
Acute left-sided facial droop and left upper extremity weakness
Current smoker, 2 packs/day
Hypertensive urgency
Meningioma on CT
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
Hypertension
Hyperlipidemia
History of recreational opiate use
Plan
No current signs of metabolic encephalopathy or MS changes/following commands
Still with L sided weakness, L sided facial droop s/p TNK
CT imaging reviewed, MRI stable
Ongoing ROBERTS, 11/28, no further opiates
Pain/sedation: tylenol elzbieta, add toradol, would not give further opiate as low dose PRN not working
Opiate w/d protcol continued
RASS goals: 0
Hemodynamically stable, not requiring pressors.
Cardiac history reviewed--HTN
No prior ECHO for review, new study pending
Resume home meds, BP parameters
Monitor on telemetry
Oxygen needs: stable on RA
Prior history of lung disease: none known, but is current 2 PPD smoker
Supplemental O2 as indicated to maintain sats > 89%
CXR reviewed indicating no acute disease, has small nodules noted (on my read/await formal read)
Will need CT chest as OP
Diet advancement per speech
Veterinary Virologist recommendations
Aspiration precautions, HOB > 30 degrees
GI prophylaxis if indicated
Creat at baseline, no history of renal disease
Void trials
Follow urine output, critical I/Os
Replete electrolytes as needed
No signs/symptoms suspicious for infectious etiology at this time
Observe off antibiotics for now
Follow fever trend, WBC count
CBC stable, no signs of bleeding or coagulopathy.
DVT prophylaxis as assessed based on risk, including mechanical SCDs
Can transfuse if indicated for Hb <7, plt < 10
No prior h/o diabetes or thyroid disease
Monitor accuchecks PRN/SS coverage if needed
Diagnostic Data
Chest X-Ray: NAD, small calcified areas on LLLs
CT Scan: HEAD 10/05/23 - No acute abnormality or substantial interval change since 10/04/2023. Stable extra-axial mass in the left frontotemporal region which is favored to represent a small meningioma.
H&N 10/04/23- No significant narrowing of the common carotid arteries, carotid bulbs, or cervical internal carotid arteries bilaterally. Calcification of the cavernous internal carotid arteries bilaterally, left greater than right. No evidence for
hemodynamically significant stenosis. Normal appearance of the anterior cerebral and middle cerebral arteries bilaterally.
Dominant left vertebral artery with small caliber right vertebral artery, with the right vertebral artery terminating as the posterior inferior cerebellar artery. As there is evidence for old right cerebellar hemisphere infarct on unenhanced CT,
question whether findings in the right vertebral artery could be from previous dissection.
Dominant left vertebral artery with no significant narrowing. Relatively small caliber basilar artery with no significant narrowing. The posterior cerebral arteries are mainly supplied from posterior communicating arteries, and the posterior
cerebral arteries appear within normal limits.
There is an enhancing extra-axial mass in the left anterolateral frontal lobe, which is likely a small meningioma. Consider follow-up imaging with CT or MRI of the head/brain without and with contrast.
Head 10/03- Focal area of encephalomalacia in the right superior cerebellar hemisphere, compatible with old infarction. No evidence for acute intracranial abnormality.
Echo:
PFT's:
Reports and relevant images were personally reviewed.
-----
Critical Care time 31 mins -- The patient is admitted for acute critical illness for the treatment of vital organ failure and/or prevention of further life-threatening conditions. Total care includes time spent in review of history, physical exam,
medications, hemodynamic/ventilator parameters, laboratory data, imaging and discussion with house staff, pharmacy, respiratory therapy, production support engineer, and nursing.
Subjective Dataa
Subjective Data
Date of Service:
Date of Service: October 06, 2023
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
Subjective:
no events ON, remains stable
still has ROBERTS, slightly better with meds
slight improvement on LUE movement, side to side
Objective Data
Data Reviewed
Vital Signs / I&O / Oxygen:
Vital Signs
Temp Pulse Resp BP Pulse Ox
98.7 F 51 13 129/83 98
10/06/23 07:21 10/06/23 06:00 10/06/23 06:00 10/06/23 06:00 10/06/23 06:00
Intake and Output
10/05/23 10/06/23 10/07/23
06:59 06:59 06:59
Intake Total 0 / 0
Output Total 600 / 600 850 / 850
Balance -600 / -600 -850 / -850
SaO2 98
Physical Exam
General: Comfortable and Other (NAD)
HEENT: Normocephalic, Anicteric and Moist Mucous Membranes
Cardiovascular: S1-S2 and Regular Rhythm
Respiratory: Clear and Non-Labored Respirations
GI: Soft, Non Distended and Non Tender
Neurology: Awake, Alert, Oriented and Other (L sided weakness, L sided facial droop)
Skin: Warm, Dry and Good Color
Labs/Micro/Reports
Lab Data
10/05/23 03:28
10/06/23 04:47
[2023-10-06] MEDS: LOW STRENGTH ASPIRIN 81 MG PO (08:32)
--- NOTE | 2023-10-06 08:48 | PTCARENOTE ---
report received, assessments per work list. denies pain, handoff NIH per work list
--- NOTE | 2023-10-06 10:53 | PTCARENOTE ---
. worked with PT, stood at bedside. transfer to [facility], hand off [facility] [[email or web address]] unchanged
--- NOTE | 2023-10-06 12:58 | W.PN.NEURO.1 ---
Addendum entered and electronically signed by Nya Reed DO 10/06/23 14:15:
Also needs outpatient f/u with neurosurgery regarding meningioma.
Original Note:
Today's Communication / Plan
-
continue asa 81mg daily indefinitely given chronic stroke on imaging; continue atorvastatin
would benefit from complete stroke workup as an outpatient; does not need to stay in the hospital for this as this event was not an acute stroke, but he has had one in the past--should see cardiology for possible NIRAV, Linq; should see hematology
for hypercoagulable workup and vascular neurosurgery given ? old vertebral dissection on imaging
Neuro Assessment/Plan
Assessment
Neuro Imaging:
Initial HCT, 10/03
Focal area of encephalomalacia in the right superior cerebellar hemisphere, compatible with old infarction.
No evidence for acute intracranial abnormality.
F/u HCT done early this AM (1:30) due to patient headache:
No acute abnormality or substantial interval change since 10/04/2023. Stable extra-axial mass in the left frontotemporal region which is favored to represent a small meningioma.
CTA head/neck:
No significant narrowing of the common carotid arteries, carotid bulbs, or cervical internal carotid arteries bilaterally.
Calcification of the cavernous internal carotid arteries bilaterally, left greater than right. No evidence for hemodynamically significant stenosis.
Normal appearance of the anterior cerebral and middle cerebral arteries bilaterally.
Dominant left vertebral artery with small caliber right vertebral artery, with the right vertebral artery terminating as the posterior inferior cerebellar artery. As there is evidence for old right cerebellar hemisphere infarct on unenhanced CT,
question whether findings in the right vertebral artery could be from previous dissection.
Dominant left vertebral artery with no significant narrowing. Relatively small caliber basilar artery with no significant narrowing. The posterior cerebral arteries are mainly supplied from posterior communicating arteries, and the posterior
cerebral arteries appear within normal limits.
There is an enhancing extra-axial mass in the left anterolateral frontal lobe, which is likely a small meningioma.
MRI brain showed:
No acute intracranial abnormality. Encephalomalacia within the right cerebellar hemisphere.
1.7 cm homogeneously enhancing, dural based extra axial lesion along the anterolateral left frontal lobe, consistent with meningioma. There is very mild associated mass effect.
Echo: no CSE
Impression:
LUISA KRAUS is a 43 year old M who has presented to the hospital with dysarthria, facial weakness and L sided weakness of abrupt onset yesterday at 3:20PM while talking on the phone. HCT showed evidence of a chronic stroke of which was not
aware/never had symptoms. Reports that he has never had any prior cranial imaging for comparison. Has a history of drug use; states no drug use in about 14 months. Denies any past IVDA. Received TNK and has not improved beyond some waxing and
waning of LLE weakness which overnight nursing coorelated with improvement in his headaches.
Differentials for the patient's presentation include:
1. malingering vs conversion disorder vs complicated migraine
2. hypertensive urgency/hypoglycemia causing stroke recrudescence (less likely given location); chronic stroke seen on HCT of which patient was not aware
Plan
Recommendations:
started ASA RC last night after MRI read; can start ASA 81mg daily as cleared for PO now
�start atorvastatin 80 mg at bedtime; LDl is 80 on atorvastatin 40mg as outpatient
�goal blood glucose levels for patient would be less than 180 mg/dL
�Speech, PT, OT evaluations
�Physiatry consultation
if this is conversion d/o, the treatment is psychotherapy
�can be started on Enoxaparin subcutaneous for DVT prophylaxis
�smoking cessation
reviewed s/s of stroke, importance of calling 911/alerting guards if this recurs after d/c
would benefit from complete stroke workup as an outpatient; does not need to stay in the hospital for this as this event was not an acute stroke, but he has had one in the past--should see cardiology for possible NIRAV, Linq; should see hematology
for hypercoagulable workup and vascular neurosurgery given ? old vertebral dissection on imaging
continue Tylenol, Compazine for headache abortive therapy; reports this is working well; no narcotics; could consider headache preventative as an outpatient
Neurology is signing off. Plan discussed with patient, Dr. Vazquez.
Needs outpatient f/u with neurology in 1-2 mos.
Subjective/Objective
Subjective Data
Date of Service: October 06, 2023
patient reports fluctuating degrees of LLE weakness; otherwise symptoms unchanged; ROBERTS currently improved
Objective Data
Vital Signs
Temp Pulse Resp BP Pulse Ox
98.6 F 71 16 141/93 97
10/06/23 10:51 10/06/23 10:51 10/06/23 10:51 10/06/23 10:51 10/06/23 10:51
Lab Results
10/05/23 03:28
10/06/23 04:47
PT 14.7 Sec (11.4-14.6) H 10/05/23 03:28
INR 1.14 10/05/23 03:28
APTT 37.4 Sec (23.4-35.0) H 10/05/23 03:28
Sodium 140 mmol/L (135-145) 10/06/23 04:47
Potassium 4.2 mmol/L (3.5-5.1) 10/06/23 04:47
BUN 13 mg/dl (9-20) 10/06/23 04:47
Glucose 98 mg/dl (70-99) 10/06/23 04:47
Calcium 9.8 mg/dl (8.4-10.2) 10/06/23 04:47
LDL Cholesterol, Calc 80 mg/dl 10/05/23 03:28
Ur Buprenorphine Positive (Negative) H 10/05/23 16:48
Patient Allergies
No Known Allergies Allergy (Verified 10/04/23 20:21)
Physical Exam
-
The patient is awake, alert and oriented x 3. He is able to follow commands and answer questions appropriately. There is no aphasia; reports some mild dysarthria compared to baseline speech but I do not notice any on exam. On cranial nerve
assessment, pupils are 3 mm bilateral, round and reactive to light and accommodation. Visual beard are full. Extraocular movements are intact. ?mild L facial weakness--central--could be his baseline. Hearing is intact bilaterally to normal
conversation volume. Tongue palate and uvula are midline. Sternocleidomastoid strengths are full bilaterally. LUE 1-2, LLE 1-2 proximally, moves toes. R side full. Deep tendon reflexes are 2+ bilateral upper and lower extremities and Babinski is
absent bilaterally. Sensations of temperature were inconsistent. Coordination is intact by finger to nose in RUE; could not test LUE due to severity of weakness.
--- NOTE | 2023-10-06 13:02 | W.PN.HOSP.TC ---
Today's Communication/Plan
-
PT/OT - acute rehab
DVT ppx
Assessment / Plan
Assessment / Plan
# Possible Acute right hemispheric CVA s/p TNK 10/03
-Significant left facial droop and weakness of left upper extremity, decreased sensation left upper extremity and dysarthria
-CT head shows focal area of encephalomalacia in the right superior cerebellar hemisphere compatible with old infarction
-Goal normotension
-CTA head and neck shows no significant narrowing of the carotid arteries, normal anterior/middle cerebral arteries, small caliber right vertebral, basilar artery
-MRI brain negative; DAPT after if no major bleeding
-Check A1c:: 5.3 and LDL 80
-statin
-Neurochecks per protocol
-Neurology recs
-PT/OT
#1.7 cm homogeneously enhancing, dural based extra axial lesion along the anterolateral left frontal lobe, consistent with meningioma.
-f/u outpatient
Essential hypertension
-goal normotension
Active smoker
-Nicotine patch
Former opiate user
-requested subutex
-icu provider rxed - will not continue outpatient - patient was supposed to be weaned off
Full code
DVT prophylaxis�HSQ
Anticipated Discharge: 24 - 48 hours
Subjective/Interval History
-
Date of Service: October 06, 2023
MR stable, no evidence of stroke
Speech eval, PT/OT
Objective Data
-
Labs:
Laboratory Results
10/06/23
04:47
Sodium 140
Potassium 4.2
Chloride 104
Carbon Dioxide 27
BUN 13
Creatinine 0.9
Glucose 98
Calcium 9.8
Total Bilirubin 0.5
AST 17
ALT 15
Alkaline Phosphatase 70
Vital Signs:
Vital Signs
Temp Pulse Resp BP Pulse Ox
98.6 F 71 16 141/93 97
10/06/23 10:51 10/06/23 10:51 10/06/23 10:51 10/06/23 10:51 10/06/23 10:51
I&O
10/05/23 10/06/23 10/07/23
06:59 06:59 06:59
Intake Total 0 / 0 480 / 480
Output Total 600 / 600 850 / 850 450 / 450
Balance -600 / -600 -850 / -850 30 / 30
Review of Systems
-
History Source: Patient
All other systems: Not reviewed unless documented
Data Reviewed
-
Diagnostic Radiology: Image personally visualized and interpreted and Report Reviewed by me
CT Scan: Image personally visualized and interpreted and Report Reviewed by me
Labs: Labs Reviewed by me
--- NOTE | 2023-10-06 15:36 | CM ---
Case management following for discharge planning
PT/OT - recs Acute rehab
Called [facility] - spoke with Kaila
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
Dr Vazquez made aware
Plan - anticipate return to [facility] when discharged
[2023-10-06] MEDS: HEPARIN 5000 UNITS SC (15:44)
[2023-10-06] MEDS: LIPITOR 80 MG PO (17:15)
[2023-10-07] VITALS (8 sets, daily range): BP systolic 103–144; BP diastolic 65–94; PULSE 65
[2023-10-07] MEDS: HEPARIN 5000 UNITS SC ×4 (00:24→23:17)
[2023-10-07] MEDS: TYLENOL PO ×4 (04:41→23:15)
[2023-10-07 07:52] LABS: Hematocrit 39.5 % (39.0-52.0); Hemoglobin 13.5 g/dL (13.0-18.0); Mean Corp Hgb Conc. 34.2 g/dL (33.0-37.0); Mean Corpuscular Hgb 28.5 pg (27.0-31.0); Mean Corpuscular Volume 83.5 fL (80.0-94.0); Mean Platelet Volume 10.6 fL (7.4-10.4); Platelet Count 248 10^3/uL (130-400); Red Blood Cell Count 4.73 10^6/uL (4.70-6.10); Red Cell Dist. Width 13.1 % (11.5-14.5); White Blood Cell Count 9.6 10^3/uL (4.8-10.8)
[2023-10-07 08:33] LABS: Blood Urea Nitrogen 15 mg/dl (9-20); Calcium 9.7 mg/dl (8.4-10.2); Carbon Dioxide 29 mmol/L (22-30); Chloride 103 mmol/L (98-107); Estimated Creatinine Clearance 108 ml/min; Glucose 83 mg/dl (70-99); Sodium 139 mmol/L (135-145); eGFR > 60.00
[2023-10-07] MEDS: SUBUTEX 16 MG SL (09:20)
[2023-10-07] MEDS: LOW STRENGTH ASPIRIN 81 MG PO (09:20)
[2023-10-07] MEDS: TYLENOL 1000 MG PO (11:48)
--- NOTE | 2023-10-07 13:40 | W.PN.HOSP.TC ---
Today's Communication/Plan
-
pending placement to rehab at [facility] group home
Assessment / Plan
Assessment / Plan
# Possible Acute right hemispheric CVA s/p TNK 10/03
-Significant left facial droop and weakness of left upper extremity, decreased sensation left upper extremity and dysarthria
-CT head shows focal area of encephalomalacia in the right superior cerebellar hemisphere compatible with old infarction
-Goal normotension
-CTA head and neck shows no significant narrowing of the carotid arteries, normal anterior/middle cerebral arteries, small caliber right vertebral, basilar artery
-MRI brain negative; DAPT after if no major bleeding
-Check A1c:: 5.3 and LDL 80
-statin
-Neurochecks per protocol
-Neurology recs
-PT/OT -acute rehab - infirmary will accept most likely Sunday
#1.7 cm homogeneously enhancing, dural based extra axial lesion along the anterolateral left frontal lobe, consistent with meningioma.
-f/u outpatient
Essential hypertension
-goal normotension
Active smoker
-Nicotine patch
Former opiate user
-requested subutex
-icu provider rxed - will not continue outpatient - patient was supposed to be weaned off - can decide at group home
Full code
DVT prophylaxis�HSQ
Anticipated Discharge: Within 24 hours
Subjective/Interval History
-
Date of Service: October 07, 2023
no acute events
Objective Data
-
Labs:
Laboratory Results
10/07/23
06:52
WBC 9.6
Hgb 13.5
Hct 39.5
Plt Count 248
Sodium 139
Potassium 4.0
Chloride 103
Carbon Dioxide 29
BUN 15
Creatinine 0.9
Glucose 83
Calcium 9.7
Vital Signs:
Vital Signs
Temp Pulse Resp BP Pulse Ox
98.0 F 64 16 135/70 97
10/07/23 07:37 10/07/23 07:37 10/07/23 07:37 10/07/23 07:37 10/07/23 07:37
I&O
10/06/23 10/07/23 10/08/23
06:59 06:59 06:59
Intake Total 1920 / 1920
Output Total 850 / 850 750 / 750
Balance -850 / -850 1170 / 1170
Review of Systems
-
History Source: Patient
All other systems: Not reviewed unless documented
Data Reviewed
-
Diagnostic Radiology: Image personally visualized and interpreted and Report Reviewed by me
CT Scan: Image personally visualized and interpreted and Report Reviewed by me
Labs: Labs Reviewed by me
--- NOTE | 2023-10-07 15:41 | PTCARENOTE ---
patient cooperative, denies complaints, tolerating diet, turns self while in bed, shackled to bed, snf guards at bedside, vss, will continue to monitor.
[2023-10-07] MEDS: LIPITOR 80 MG PO (17:37)
[2023-10-08 03:22] VITALS: BP 126/79
[2023-10-08] MEDS: TYLENOL PO ×2 (05:29→08:48)
[2023-10-08 07:22] LABS: Hematocrit 38.9 % (39.0-52.0); Hemoglobin 13.5 g/dL (13.0-18.0); Mean Corp Hgb Conc. 34.7 g/dL (33.0-37.0); Mean Corpuscular Hgb 28.2 pg (27.0-31.0); Mean Corpuscular Volume 81.4 fL (80.0-94.0); Mean Platelet Volume 9.9 fL (7.4-10.4); Platelet Count 259 10^3/uL (130-400); Red Blood Cell Count 4.78 10^6/uL (4.70-6.10); Red Cell Dist. Width 12.8 % (11.5-14.5); White Blood Cell Count 8.7 10^3/uL (4.8-10.8)
[2023-10-08 07:30] VITALS: BP 122/76
[2023-10-08] MEDS: HEPARIN SC ×2 (08:50→08:52)
[2023-10-08] MEDS: LOW STRENGTH ASPIRIN 81 MG PO (08:50)
[2023-10-08 09:07] LABS: Blood Urea Nitrogen 16 mg/dl (9-20); Calcium 9.5 mg/dl (8.4-10.2); Carbon Dioxide 30 mmol/L (22-30); Chloride 102 mmol/L (98-107); Estimated Creatinine Clearance 108 ml/min; Glucose 91 mg/dl (70-99); Sodium 136 mmol/L (135-145); eGFR > 60.00
[2023-10-08] MEDS: SUBUTEX 16 MG SL (10:55)
[2023-10-08 12:00] VITALS: BP 137/86
[2023-10-08] MEDS: TYLENOL 650 MG PO (12:48)
--- NOTE | 2023-10-08 12:50 | W.PN.HOSP.TC ---
Addendum entered and electronically signed by Darrel Mosley MD 10/10/23 16:04:
Left sided weakness not flaccid paralysis
Original Note:
Today's Communication/Plan
-
dc
Assessment / Plan
Assessment / Plan
#Left facial droop and left UE weakness s/p TNK 10/03
- MRI of the brain does not suggest any acute infarct raising concern about other etiologies for his symptoms other than stroke. Differential diagnosis of conversion/malingering. He had blood sugars of 54 unclear if it played a role.
-Continue his aspirin and statin and follow outpatient for old cerebellar infarct evaluation.
-Patient still have some left upper extremity deficit which seems to be fluctuating.
-CT head shows focal area of encephalomalacia in the right superior cerebellar hemisphere compatible with old infarction
-CTA head and neck shows no significant narrowing of the carotid arteries, normal anterior/middle cerebral arteries, small caliber right vertebral, basilar artery
-Hb A1c:: 5.3 and LDL 80
-PT/OT -acute rehab - infirmary will accept likely today
#1.7 cm homogeneously enhancing, dural based extra axial lesion along the anterolateral left frontal lobe, consistent with meningioma.
-f/u outpatient
Essential hypertension
-goal normotension-under goal
Active smoker
-Nicotine patch
Former opiate user
-requested subutex
-icu provider rxed - will not continue outpatient - patient was supposed to be weaned off - can decide at long-term
Full code
DVT prophylaxis�HSQ
Patient is from [place] , he thinks he is going to be in the long-term for the next 6 days and return back to [place].
He was told about old cerebellar infarct finding which needs workup including cardiology follow-up echocardiogram and a Linq monitor. Also advised that he requires follow-up of his [id number] with the PCP and get neurosurgery eval when he
is back in [place].
Medically stable for DC
Total time of dc 32 min
Anticipated Discharge: Today
Subjective/Interval History
-
Date of Service: October 08, 2023
Improved strength in left arm.
No new symptoms.
Denies speech or vision issues.
Objective Data
-
Labs:
Laboratory Results
10/08/23
06:45
WBC 8.7
Hgb 13.5
Hct 38.9 L
Plt Count 259
Sodium 136
Potassium 4.0
Chloride 102
Carbon Dioxide 30
BUN 16
Creatinine 0.9
Glucose 91
Calcium 9.5
Vital Signs:
Vital Signs
Temp Pulse Resp BP Pulse Ox
98.5 F 72 16 137/86 96
10/08/23 12:00 10/08/23 12:00 10/08/23 12:00 10/08/23 12:00 10/08/23 12:00
I&O
10/07/23 10/08/23 10/09/23
06:59 06:59 06:59
Intake Total 1920 / 1920 1520 / 1520
Output Total 750 / 750
Balance 1170 / 1170 1520 / 1520
Review of Systems
-
Constitutional: Denies Fever
EENT: Denies Sore Throat
Respiratory: Denies Cough or Trouble Breathing
Cardiac: Denies Chest Pain
Abdomen/GI: Denies Abdominal Pain, Nausea or Vomiting
Neuro: Denies Dizzy or Lightheadedness
Physical Exam
-
General: No Apparent Distress
HEENT: Moist Mucous Membranes
Respiratory: Clear to Auscultation
Cardiac: Regular Rhythm and S1/S2
Musculoskeletal: No Edema
Neuro: AO x 3; Negative No Motor Deficits (Right upper lower extremity 5/5 strength [place]; left lower extremity 5/5; left upper extremity-he did not lift it on command but he was able to squeeze my fingers ;the strength of science specialist seems to fluctuate.)
Psych: Calm; Negative Confused
--- NOTE | 2023-10-08 13:02 | W.DS.TRANS ---
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
-
Discharge Instructions:
Discharge Diagnosis/Procedures Left upper extremity and facial weakness-MRI
negative for acute stroke; old right cerebellar
infarct
Diet Low Cholesterol
Activity As tolerated
Driving Restrictions Not until seen by your Dr
Other Services PT,OT
Instructions:
Stand-Alone Forms:
Changes to Home Medications: Yes
Discharge Medications:
DC Medications w/original date entered in [facility]
lisinopril 20 mg tablet 20 mg PO DAILY Blood Pressure 10/04/23
aspirin 81 mg chewable tablet 81 mg PO DAILY Blood Clot Prevention/Tx 10/05/23
loperamide 2 mg tablet 2 mg PO TIDPRN PRN diarrhea 10/05/23
acetaminophen 325 mg tablet 650 mg (2 x 325 mg) PO Q4HPRN PRN mild pain /fever >100.4 #1 tab 10/08/23
atorvastatin 80 mg tablet 80 mg PO QPM #1 tab 10/08/23
Home Medication Changes
dose of lipitor increased from 40 to 80
Pending Results: No
[2023-10-08 13:09] VITALS: BP 146/97; PULSE 78
--- NOTE | 2023-10-09 08:25 | PN.CDI ---
CDI
- -
CDI:
Physician Documentation Request
Admit Date: 10/04/23 20:06
Dear Doctor Dimitri,
Patient admitted for CVA.
10/03 H&P: 'Significant left facial droop and weakness of left upper extremity, decreased sensation left upper extremity and dysarthria'
10/04 PCN: 'left arm/leg flaccid, can wiggle fingers and toes. Decreased sensation on left side.'
Based on the above, could you clarify in the progress notes, the appropriate diagnosis, if significant, that supports the above abnormalities and additional evaluation, monitoring and/or treatment rendered:
Left sided flaccid hemiparesis
Weakness
Other
Use of terms such as suspected, likely, concern for, or probable (associated with a specific diagnosis that is being evaluated, monitored, or treated as if it exists) are acceptable and can be coded in the inpatient setting, when documented at the
time of discharge.
Thank you,
Destini Torres RN, BSN
CDI Specialist
Available via [place] text
Please use your independent medical judgment in providing your response.
== END 2023-10-08 14:50 | DRG 63 ==
LOC: 3 WEST ACU 20:06
PROVIDERS: Internal Medicine; ADMITTING PHYSICIAN Hospitalist; ATTENDING PHYSICIAN Internal Medicine; CONSULT PHYSICIAN Psychiatry & Neurology Neurology; EMERGENCY PHYSICIAN Emergency Medicine
PROC: 3E04317 Introduction of Other Thrombolytic into Central Vein, Percutaneous Approach (ICD-10-PCS; 2023-10-04)
DX: I63.9 Cerebral infarction, unspecified (principal); G93.89 Other specified disorders of brain; I16.0 Hypertensive urgency; I10 Essential (primary) hypertension; G83.24 Monoplegia of upper limb affecting left nondominant side; D32.9 Benign neoplasm of meninges, unspecified; R29.810 Facial weakness; R47.1 Dysarthria and anarthria; E16.2 Hypoglycemia, unspecified; F17.210 Nicotine dependence, cigarettes, uncomplicated; E78.5 Hyperlipidemia, unspecified; K21.9 Gastro-esophageal reflux disease without esophagitis; F11.91 Opioid use, unspecified, in remission; Z86.73 Personal history of transient ischemic attack (TIA), and cerebral infarction without residual deficits
CPT/HCPCS: 70450; 70496; 70498; 70553; 71045; 80048; 80061; 80076; 80306; 80307; 82962; 83036; 85025; 85027; 85610; 85730; 87070; 92523; 92610; 93005; 93306; 96374; 96375; 97163; 97166; 97530; 97535; 99291; 99406; A9575; J3101; Q9967

== ENCOUNTER 2023-10-11 16:36 | Observation (INO) | payer MEDICAID, OTHER, SELFPAY ==
[2023-10-11 14:50] VITALS: BMI 27.1
[2023-10-11 14:51] LABS: Glucose - Point of Care 88 mg/dl (70-99)
[2023-10-11 15:03] LABS: % Basophils 1.1 % (0-2); % Eosinophils 4.1 % (0-6); % Immature Granulocytes 0.5 % (0-0.5); % Lymphocytes 24.1 % (20.5-51.1); % Monocytes 5.8 % (1.7-9.3); % Neutrophils 64.4 % (42.2-75.2); Absolute Basophils 0.1 10^3/uL (0-0.2); Absolute Eosinophils 0.4 10^3/uL (0-0.7); Absolute Immature Granulocytes 0.1 10^3/uL (0-0.05); Absolute Lymphocytes 2.2 10^3/uL (1.2-3.4); Absolute Monocytes 0.5 10^3/uL (0.1-0.6); Absolute Neutrophils 5.9 10^3/uL (1.4-6.5); Hematocrit 41.2 % (39.0-52.0); Hemoglobin 14.3 g/dL (13.0-18.0); Mean Corp Hgb Conc. 34.7 g/dL (33.0-37.0); Mean Corpuscular Hgb 27.5 pg (27.0-31.0); Mean Corpuscular Volume 79.2 fL (80.0-94.0); Mean Platelet Volume 9.5 fL (7.4-10.4); Nucleated Red Blood Cells % 0 % (-); Platelet Count 305 10^3/uL (130-400); Red Cell Dist. Width 12.9 % (11.5-14.5); White Blood Cell Count 9.2 10^3/uL (4.8-10.8)
[2023-10-11 15:11] VITALS: BP 154/92; BP 157/106
[2023-10-11 15:14] LABS: INR 0.98; PT 12.9 Sec (11.4-14.6)
--- NOTE | 2023-10-11 15:23 | ED.CVA ---
History of Present Illness
General
Chief Complaint: CVA/TIA Symptoms
Source: patient, records and ambulance crew
Exam Limitations: none
Time Seen by Provider: 10/11/23 14:55
Nursing documentation reviewed up to this point in time: agreed with
Onset of Stroke Symptoms
Onset of symptoms known: No
Date of onset of symptoms: 10/11/23
Time pt last seen normal is known: Yes
Date last time pt seen normal: 10/11/23
Time last time pt seen normal: 09:00
History of Present Illness
History of Present Illness:
Patient is a 43-year-old male who approximately 1 week ago received TNK for CVA and presents today with left-sided weakness. Patient was fine at 9 AM when he took a nap but awoke at 12 noon with left-sided weakness. EMS called at 2:35 PM with
report of en route and neurologic findings. Patient has a headache that is diffuse which he states is the same as when he had a stroke last week. Patient denies any recent injuries, fever, chills, nasal congestion, sore throat or cough. Patient
denies chest pain, shortness of breath or palpitations. Patient denies any GI or symptoms. Patient is left-hand dominant and has left-sided weakness.
Past History
Past History
ED Past Medical History: CVA, HTN and Hypercholesterolemia
Social History
Tobacco: Former smoker
Living: jail
Review of Systems
Review of Systems
All Other Systems: ROS reviewed and negative except as documented in HPI and ROS
Constitutional: Reports no symptoms
EENT: Reports no symptoms
Respiratory: Reports no symptoms
Cardiac: Reports no symptoms
ABD/GI: Reports no symptoms
: Reports no symptoms
Musculoskeletal: Reports no symptoms
Skin: Reports no symptoms
Neurological: Reports headache and weakness
Hematologic/Lymphatic: Reports no symptoms
Phy Exam
Physical Exam
Physical Exam:
Physical Exam
General: mild distress, alert and appropriate, well nourished, well hydrated
HENT: Normocephalic, supple with no lymphadenopathy, no thyromegaly
Eyes: Clear sclera, conjuctiva without injection
Heart: Regular rhythm and rate. No S3, S4. No murmur. No NVD, bruit
Lungs: No respiratory distress, no stridor, lung sounds clear and equal bilaterally
Abdomen: Soft, nontender, no organomegaly, no CVA tenderness, BS good
Neuro: Alert and oriented x 3, CN II - XII intact except left facial droop not involving the left forehead, left-sided weakness with no ability to move extremities, no cerebellar dysfunction
Skin: no rash
Psychiatric: well kept. interactive and cooperative
Extremities: No edema, cyanosis, tenderness, Good and equal peripheral pulses.
Scores
NIH Stroke Score
Level of Consciousness: 0 - Alert
LOC Questions: 0-Answers both correctly
LOC Commands: 0-Performs both correctly
Best Horizontal Gaze: 0-Normal
Visual [place]: 0=Normal, no visual loss
Facial Palsy: 2=Partial paralysis
Motor - Right Arm: 0=No drift 10 seconds
Motor - Left Arm: 4=No movement
Motor - Right Le-No drift 5 seconds
Motor - Left Le-No movement
Limb Ataxia: 0-Absent
Sensation: 0-Normal
Best Language: 0-No aphasia
Dysarthria: 0-Normal
Extinction and Inattention: 0-No abnormality
Total Score:: 10
Thrombolytic Contraindication
Inclusion and Exclusion criteria reviewed: Yes
Reasons for NON-Tx with Thrombolytics POSSIBLE Exclusions: Recent ischemic stroke within 3 months
Course
Orders/Labs/Results
Orders:
Orders
10/11/23 14:55
Electrocardiogram (*1) Stat
Reason for Study: Other
Other Reason for Exam: neuro symptoms
CT Head W/o Cont STROKE ALERT Urgent
Comment:
Reason For Exam: left hemiparesis
CT Head/Neck Ang STROKE ALERT Urgent
Comment:
Reason For Exam: Left-sided weakness
EKG- Treatment ONCE
10/11/23 14:56
Complete Blood Count/With Diff Urgent
Comprehensive Metabolic Panel Urgent
Prothrombin Time Urgent
10/11/23 15:16
Aspirin Chewable [Low Strength Aspirin] 324 mg PO NOW STA
Valproate Sodium [Depacon] 1,000 mg 0.9% Sodium Chloride 50 ml [Nss] 50 ml IV NOW
Abnormal Lab Results
10/11/23
14:56
MCV 79.2 L fL
(80.0-94.0)
Abs Immat Gran (auto) 0.1 H 10^3/uL
(0-0.05)
10/11/23 14:56
Vital Signs
Initial and Last Documented VS:
Initial Vital Signs
Pulse Resp BP Pulse Ox
71 18 154/92 99
10/11/23 15:11 10/11/23 15:11 10/11/23 15:11 10/11/23 15:11
Last Documented Vital Signs
Pulse Resp BP Pulse Ox
71 18 154/92 99
10/11/23 15:11 10/11/23 15:11 10/11/23 15:11 10/11/23 15:16
*Radiology
Radiology exam reviewed: radiology read reviewed (Unremarkable CT and CTA with stable 1.7 cm meningioma)
*Pulse Oximetry
Patient hypoxic: no
*EKG
Interpreted by ED Provider?: Yes
EKG Intrepretation Date: 10/11/23
EKG Intrepretation Time: 15:37
Interpretation: normal
Comparison EKG: no changes
Heart Rate: 67
Rate: normal
Rhythm: sinus
[place]: normal axis
Interval: normal interval
QRS Pattern: normal QRS
Ischemia: no ischemia
*Senior Ui Web Developer Interpretation
Rate: normal
Interpretation: normal
Heart Rate: 67
Rhythm: sinus
*Critical Care Note
Total Time (30-74mins, 75-104mins- exclusive of procedures): 45 minutes
Update Note
Update Note:
Patient was seen by neuro. Recommended Depakote and aspirin. Patient will be admitted. Differential includes CVA, conversion reaction, complex migraine
ED Attending Note
-
Portions of this chart may have been created with voice recognition software.� Occasional wrong word or��sound alike� substitutions may have occurred due to the inherent limitations of voice recognition software.
Discharge Plan
Departure
Patient Disposition: Admit
Date of Disposition: 10/11/23
Time of Disposition: 15:39
Admit to: Telemetry
Admit to doctor: Hospitalist
Presentation/result/management discussed w/ accepting MD/DO: Neurology
Patient with high blood pressure during this ER visit?: Yes
Condition: Fair
Covid-19: Not Applicable
Discharge Problem:
Acute cerebrovascular accident (CVA)
Prescriptions:
No Action
lisinopril 20 mg Tablet
20 mg PO DAILY
loperamide 2 mg Tablet
2 mg PO TIDPRN PRN (Reason: diarrhea)
aspirin 81 mg Tablet,Chewable
81 mg PO DAILY
atorvastatin 80 mg Tablet
80 mg PO QPM Qty: 1 0RF
acetaminophen 325 mg Tablet
650 mg PO Q4HPRN PRN (Reason: mild pain /fever >100.4) Qty: 1 0RF
Referrals:
[facility] [Family Provider] -
Interventions
Interventions:
*Risk Screen - Suicide Last Done: 10/11/23 15:20
ED- Pulmonary Assessment Last Done: 10/11/23 15:16
ED- Neurological Assessment Last Done: 10/11/23 15:17
ED- Cardiac Assessment Last Done: 10/11/23 15:16
Discharge Date and Time
Print Language: CZECH
[2023-10-11 15:25] LABS: ALT (SGPT) 52 U/L (0-50); AST (SGOT) 41 U/L (17-59); Albumin 4.5 g/dl (3.5-5.0); Alkaline Phosphatase 85 U/L (38-126); Blood Urea Nitrogen 12 mg/dl (9-20); Calcium 10.3 mg/dl (8.4-10.2); Carbon Dioxide 31 mmol/L (22-30); Chloride 103 mmol/L (98-107); Estimated Creatinine Clearance 108 ml/min; Glucose 81 mg/dl (70-99); Potassium 4.8 mmol/L (3.5-5.1); Sodium 144 mmol/L (135-145); Total Bilirubin 0.5 mg/dl (0.2-1.3); Total Protein 6.8 g/dl (6.3-8.2); eGFR > 60.00
[2023-10-11] MEDS: LOW STRENGTH ASPIRIN 324 MG PO (15:29)
--- NOTE | 2023-10-11 15:33 | CON.NEURO4 ---
Documented by User: Rose Marie Louie NP 10/11/23 16:03
Consultation - Neurology 4
-
CONSULTING PHYSICIAN: Renny Odom MD
REFERRING PHYSICIAN: ER/Dr. Kelly
DICTATED BY: TERRENCE Pop
DATE/TIME OF REQUEST: 10/11/23
DATE/TIME OF CONSULTATION: 10/11/23
Reason for Consultation: Stroke Alert
History of Present Illness:
This is a 43-year-old left-handed incarcerated male who has presented to the hospital as a stroke alert with report of left facial droop, left hemiparesis, and dysarthria. Patient was recently evaluated here on 10/04/23 for similar R MCA stroke
symptoms and received IV TNK.
From previous evaluation by Dr. Reed on 10/05/23:
'43-year-old male with a past medical history of drug use, hypertension and possible hyperlipidemia is currently incarcerated brought in as a stroke alert yesterday after experiencing abrupt onset of dysarthria, left upper extremity weakness and
left facial droop around 3:20 or 3:30 PM today while talking on the phone to his grandchildren. He states that just prior to onset of his symptoms he was speaking normally. Chronic right superior cerebellar hemisphere infarct was seen on head CT
patient states that he was not aware of this and never had similar symptoms in the past. He states that he has never had any imaging done of his brain for comparison. No family history of IA or stroke. No history of endocarditis. He denies any
IV drug use and records indicate that he snorted opiates in the past. Last drug use was about 14 months ago. He received TNK in the ED and reports that his symptoms are now better. He also has a headache. Repeat head CT done around 130 this
morning was stable. He denies any past history of headaches. He also denies any history of dissection.'
MRI brain was obtained on 10/05/23 and was negative for any acute findings. Patient was discharged on aspirin 81mg daily and high dose statin. Outpatient follow-up with Cardiology for ILR monitoring and hematology for hypercoauable workup was
recommended. He reports that several days later he was 100% back to his baseline. This morning (10/11/23), he reports being at his baseline when he developed a 'raging' headache that he currently rates a 20/10 around 0900 associated with
photo/phonophobia and nausea no vomiting. Around 0930 he laid down to take a nap, and upon waking up at 1200 he had a left facial droop, dysarthria, decreased sensation on his left side, and he couldn't move his left side. He reports that his
symptoms are very similar to last week, at which time he also had a severe headache. A stroke alert was activated. CT head and CTA head/neck were obtained and are negative for any acute abnormalities. NIHSS is 12 for dysarthria, left facial
drooping, left arm and leg trace movement, decreased left-sided sensation, and left sensory neglect. He is not a candidate for TNK or IAT due to last receiving a dose of TNK 7 days ago and no LVO. He was provided with a loading dose of aspirin in
the ER. He denies any vision changes, dizziness, chest pain, palpitations, and shortness of breath. He reports having headaches in the past but would not consider them migraine headaches until his headache last week. He has never had any visual aura
associated with his headaches.
Past Medical History: Old right cerebellar and possible old right frontal small ischemic infarcts, left meningioma, R MCA stroke syndrome s/p TNK on 10/04/23 with negative MRI brain, HTN, HLD, drug abuse
Surgical History: Clavicle repair.
Family History: Reviewed and noncontributory.
Social History: Current smoker. Former snorting opiates. Denies alcohol.
Allergies: No known allergies.
Home Medications: See below.
Review of Symptoms:
Patient denies any fever, chest pain, shortness of breath, GI or symptoms.
�Per the HPI.�All systems are reviewed negative except above.
Physical Exam:
The patient is afebrile, abdomen is nondistended, breathing is unlabored, skin is warm and dry, no edema.
NIH Stroke Scale:
I performed the NIH stroke scale on the patient on 10/11/23 at 1500. The patient scored 12 points on the NIH stroke scale assessment, which were assigned as follows: See below.
Neurologic Examination:
The patient is awake, alert and oriented x 3. He is able to follow commands and answer questions appropriately. There is no aphasia. Speech is mildly dysarthric. On cranial nerve assessment, pupils are 3 mm bilateral, round and reactive to light
and accommodation. Visual chacon are full. Extraocular movements are intact. There is left facial drooping. Hearing is intact bilaterally to normal conversation volume. Tongue is midline. Motor strengths are 5/5 right upper, 1/5 left upper, 5/5
right lower, and 1/5 left lower extremities on medical research [facility] scale. There is no drift or involuntary movement noted. Babinski is absent bilaterally. Sensations of touch, temperature and vibration are intact and severely reduced in the
left face, arm, and leg. There is extinction noted on double simultaneous stimulation on the left side. Coordination is intact by finger to nose on the right, RICHIE left.
Lab Results: See below.
Neuro Imaging:
1. CT Head 10/11/23: There are no acute intracranial abnormalities. There is old 2.5 cm right cerebellar infarct.
2. CTA head/neck 10/11/23: Stable 1.7 cm meningioma at the anterior aspect of the left sylvian fissure. No significant vascular abnormalities are demonstrated.
3. MRI brain 10/05/23: No acute intracranial abnormality. Encephalomalacia within the right cerebellar hemisphere. 1.7 cm homogeneously enhancing, dural based extra axial lesion along the anterolateral left frontal lobe, consistent with meningioma.
There is very mild associated mass effect.
Differentials for the patient's presentation include:
1. Complicated migraine likely producing patient's symptoms, malingering vs conversion disorder possible.
2. Cannot entirely exclude R MCA stroke/TIA producing symptoms.
3. Left meningioma not contributing to symptoms.
Patient has the following risk factors for their symptoms: Migraine, hx stroke, hx drug abuse, HTN, HLD
IV Tenecteplase/IAT candidacy: Not a candidate due to TNK administration 7 days ago, no LVO.
Recommendations:
-Provide loading dose of aspirin x1 now.
-Provide valproic acid 1000mg IV x1 now for headache.
-Permissive hypertension SBP<220, DBP<120 until 1200 tomorrow, then goal normotension.
-MRI brain noncontrast pending.
-LDL goal <70. LDL is 80. Continue atorvastatin 80mg daily.
-Goal normoglycemia, hbA1c is 5.3.
-NIHSS and neurological checks per unit guidelines.
-Provide patient with a stroke education packet.
-PT/OT/ST evaluations.
-DVT prophylaxis.
Discussed patient care with: Dr. Odom, Dr. Kelly, the patient
Vital Signs and Labs
-
Vital Signs and Labs:
Vital Signs
Pulse Resp BP Pulse Ox
69 18 157/106 97
10/11/23 15:30 10/11/23 15:30 10/11/23 15:11 10/11/23 15:30
Lab Results
10/11/23 14:56
10/11/23 14:56
PT 12.9 Sec (11.4-14.6) 10/11/23 14:56
INR 0.98 10/11/23 14:56
Sodium 144 mmol/L (135-145) 10/11/23 14:56
Potassium 4.8 mmol/L (3.5-5.1) 10/11/23 14:56
BUN 12 mg/dl (9-20) 10/11/23 14:56
Glucose 81 mg/dl (70-99) 10/11/23 14:56
Calcium 10.3 mg/dl (8.4-10.2) H 10/11/23 14:56
Medications
-
Active Medications
Generic Name Dose Route Start Last Admin
Trade Name Freq PRN Reason Stop Dose Admin
Valproate Sodium 1,000 mg/ 60 mls @ 60 mls/hr 10/11/23 15:28
Sodium Chloride IV 10/11/23 16:27
NOW STA
Home Medications
�Medication �Instructions �Recorded
lisinopril 20 mg tablet 20 mg PO DAILY Blood Pressure 10/04/23
aspirin 81 mg chewable tablet 81 mg PO DAILY Blood Clot 10/05/23
Prevention/Tx
loperamide 2 mg tablet 2 mg PO TIDPRN PRN diarrhea 10/05/23
atorvastatin 80 mg tablet 80 mg PO QPM 10/11/23
buprenorphine 300 mg/1.5 mL 300 mg SC QMONTH 10/11/23
solution,exten.rel.subcutaneous
syringe (Sublocade)
buprenorphine HCl 8 mg sublingual 16 mg sublingual .[id number] 10/11/23
tablet
clonidine HCl 0.1 mg tablet 0.5 mg PO .[id number] 10/11/23
clotrimazole 1 % topical cream 1 applic topical BID 10/11/23
ondansetron HCl 4 mg tablet 4 mg PO TIDPRN PRN nausea 10/11/23
promethazine 25 mg tablet 25 mg PO DAILY 10/11/23
NIH Stroke Score
Subsequent NIH Scale
Date of Subsequent NIH Scale: 10/11/23
Time of Subsequent NIH Scale: 15:00
NIH Stroke Score
Level of Consciousness: 0 - Alert
LOC Questions: 0-Answers both correctly
LOC Commands: 0-Performs both correctly
Best Horizontal Gaze: 0-Normal
Visual Chacon: 0=Normal, no visual loss
Facial Palsy: 2=Partial paralysis
Motor - Right Arm: 0=No drift 10 seconds
Motor - Left Arm: 3=None vs. gravity
Motor - Right Le-No drift 5 seconds
Motor - Left Le-None vs. gravity
Limb Ataxia: 0-Absent
Sensation: 2-Severe loss
Best Language: 0-No aphasia
Dysarthria: 1-Mild slurring
Extinction and Inattention: 1-Sensory inattention
Total Score:: 12
Modified [place] (mRS) Score
Modified [place] Scale (mRS): Moderately severe disability. Unable to attend to bodily needs/walk.
Score: 4
Alteplase Contraindication
Inclusion and Exclusion criteria reviewed: Yes
IAT Contraindications: Imaging doesn't show large vessel occlusion as cause of stroke

Documented by User: Renny Odom MD 10/12/23 11:35
Consultation - Neurology 4
-
CONSULTING PHYSICIAN: Renny Odom MD
REFERRING PHYSICIAN: ER/Dr. Kelly
DICTATED BY: TERRENCE Pop
DATE/TIME OF REQUEST: 10/11/23
DATE/TIME OF CONSULTATION: 10/11/23
Reason for Consultation: Stroke Alert
History of Present Illness:
This is a 43-year-old left-handed incarcerated male who has presented to the hospital as a stroke alert with report of left facial droop, left hemiparesis, and dysarthria. Patient was recently evaluated here on 10/04/23 for similar R MCA stroke
symptoms and received IV TNK.
From previous evaluation by Dr. Reed on 10/05/23:
'43-year-old male with a past medical history of drug use, hypertension and possible hyperlipidemia is currently incarcerated brought in as a stroke alert yesterday after experiencing abrupt onset of dysarthria, left upper extremity weakness and
left facial droop around 3:20 or 3:30 PM today while talking on the phone to his grandchildren. He states that just prior to onset of his symptoms he was speaking normally. Chronic right superior cerebellar hemisphere infarct was seen on head CT
patient states that he was not aware of this and never had similar symptoms in the past. He states that he has never had any imaging done of his brain for comparison. No family history of IA or stroke. No history of endocarditis. He denies any
IV drug use and records indicate that he snorted opiates in the past. Last drug use was about 14 months ago. He received TNK in the ED and reports that his symptoms are now better. He also has a headache. Repeat head CT done around 130 this
morning was stable. He denies any past history of headaches. He also denies any history of dissection.'
MRI brain was obtained on 10/05/23 and was negative for any acute findings. Patient was discharged on aspirin 81mg daily and high dose statin. Outpatient follow-up with Cardiology for ILR monitoring and hematology for hypercoagulable workup was
recommended. He reports that several days later he was 100% back to his baseline. This morning (10/11/23), he reports being at his baseline when he developed a 'raging' headache that he currently rates a 20/10 around 0900 associated with
photo/phonophobia and nausea no vomiting. Around 0930 he laid down to take a nap, and upon waking up at 1200 he had a left facial droop, dysarthria, decreased sensation on his left side, and he couldn't move his left side. He reports that his
symptoms are very similar to last week, at which time he also had a severe headache. A stroke alert was activated. CT head and CTA head/neck were obtained and are negative for any acute abnormalities. NIHSS is 12 for dysarthria, left facial
drooping, left arm and leg trace movement, decreased left-sided sensation, and left sensory neglect. He is not a candidate for TNK or IAT due to last receiving a dose of TNK 7 days ago and no LVO. He was provided with a loading dose of aspirin in
the ER. He denies any vision changes, dizziness, chest pain, palpitations, and shortness of breath. He reports having headaches in the past but would not consider them migraine headaches until his headache last week. He has never had any visual aura
associated with his headaches.
Past Medical History: Old right cerebellar and possible old right frontal small ischemic infarcts, left meningioma, R MCA stroke syndrome s/p TNK on 10/04/23 with negative MRI brain, HTN, HLD, drug abuse
Surgical History: Clavicle repair.
Family History: Reviewed and noncontributory.
Social History: Current smoker. Former snorting opiates. Denies alcohol.
Allergies: No known allergies.
Home Medications: See below.
Review of Symptoms:
Patient denies any fever, chest pain, shortness of breath, GI or symptoms.
�Per the HPI.�All systems are reviewed negative except above.
Physical Exam:
The patient is afebrile, abdomen is nondistended, breathing is unlabored, skin is warm and dry, no edema.
NIH Stroke Scale:
I performed the NIH stroke scale on the patient on 10/11/23 at 1500. The patient scored 12 points on the NIH stroke scale assessment, which were assigned as follows: See below.
Neurologic Examination:
The patient is awake, alert and oriented x 3. He is able to follow commands and answer questions appropriately. There is no aphasia. Speech is mildly dysarthric. On cranial nerve assessment, pupils are 3 mm bilateral, round and reactive to light
and accommodation. Visual chacon are full. Extraocular movements are intact. There is left facial drooping. Hearing is intact bilaterally to normal conversation volume. Tongue is midline. Motor strengths are 5/5 right upper, 1/5 left upper, 5/5
right lower, and 1/5 left lower extremities on medical research [facility] scale. There is no drift or involuntary movement noted. Babinski is absent bilaterally. Sensations of touch, temperature and vibration are intact and severely reduced in the
left face, arm, and leg. There is extinction noted on double simultaneous stimulation on the left side. Coordination is intact by finger to nose on the right, RICHIE left.
Lab Results: See below.
Neuro Imaging:
1. CT Head 10/11/23: There are no acute intracranial abnormalities. There is old 2.5 cm right cerebellar infarct.
2. CTA head/neck 10/11/23: Stable 1.7 cm meningioma at the anterior aspect of the left sylvian fissure. No significant vascular abnormalities are demonstrated.
3. MRI brain 10/05/23: No acute intracranial abnormality. Encephalomalacia within the right cerebellar hemisphere. 1.7 cm homogeneously enhancing, dural based extra axial lesion along the anterolateral left frontal lobe, consistent with meningioma.
There is very mild associated mass effect.
Differentials for the patient's presentation include:
1. Complicated migraine likely producing patient's symptoms, malingering vs conversion disorder possible.
2. Cannot entirely exclude R MCA stroke/TIA producing symptoms.
3. Left meningioma not contributing to symptoms.
Patient has the following risk factors for their symptoms: Migraine, hx stroke, hx drug abuse, HTN, HLD
IV Tenecteplase/IAT candidacy: Not a candidate due to TNK administration 7 days ago, no LVO.
Recommendations:
-Provide loading dose of aspirin x1 now.
-Provide valproic acid 1000mg IV x1 now for headache.
-Permissive hypertension SBP<220, DBP<120 until 1200 tomorrow, then goal normotension.
-MRI brain noncontrast pending.
-LDL goal <70. LDL is 80. Continue atorvastatin 80mg daily.
-Goal normoglycemia, hbA1c is 5.3.
-NIHSS and neurological checks per unit guidelines.
-Provide patient with a stroke education packet.
-PT/OT/ST evaluations.
-DVT prophylaxis.
Discussed patient care with: Dr. Odom, Dr. Kelly, the patient
Addendum: Neurology attending note
43-year-old male with history of migraine who presents with left hemiparesis who had an episode of weakness a week ago and and received TNK initially with resolution of symptoms who now has presented with similar complaints associated with
headaches. Exam reveals facial asymmetry giveaway pattern of weakness on the left side. He is moving the left side spontaneously when left alone. His left foot withdraws to deep pressure
CT head shows minimal small vessel disease and small meningioma adjacent to the left lateral sulcus
Plan: IV Depakote. Aspirin 325. Verapamil 40 mg twice a day. Pletal 100 mg. PT OT. Permissive hypertension
NIH Stroke Score
NIH Stroke Score
Total Score:: 12
Modified [place] (mRS) Score
Score: 4
[2023-10-11] MEDS: DEPACON 60 MG IV (15:59)
[2023-10-11 16:00] VITALS: BP 125/98
--- NOTE | 2023-10-11 16:28 | HPS.HSE ---
Family Physician
-
Family Physician: [facility]
Chief Complaint
-
left sided weakness
History of Present Illness
43-year-old male past medical history of HTN, meningioma, recent hospitalization for right MCA stroke symptoms status post TNK, former opiate use, active smoker, presenting for left frontal headache, left facial droop, left facial numbness, left
upper extremity and lower extremity weakness, and difficulty speaking, left blurry vision, left hearing impairment which started today. Headache is constant and associated with some sensitivity to light. He denies any history of migraines.
He had similar symptoms on 10/03 and was admitted at that time and received TNK with negative MRI. Symptoms had resolved by discharge.
Patient is a regular smoker but has not smoked since she has been incarcerated. No recent alcohol, drug use.
Medical History
Past Medical History
Past Medical History: Reports Other (HTN, meningioma, recent hospitalization for right MCA stroke symptoms status post TNK, former opiate use, active smoker,)
Past Surgical History: Reports None
Social History
Tobacco: Smoker
Alcohol: None
Drug: Former User
Family History
Family History: Not pertinent
Allergies / Home Medications
Allergies reflects when Allergies were last updated in [facility].
Home Medications with original date entered in [facility]
Allergy/Medication List:
Allergies
Allergy/AdvReac Type Severity Reaction Status Date / Time
No Known Allergies Allergy Verified 10/11/23 15:22
Home Medications
lisinopril 20 mg tablet 20 mg PO DAILY Blood Pressure 10/04/23
aspirin 81 mg chewable tablet 81 mg PO DAILY Blood Clot Prevention/Tx 10/05/23
loperamide 2 mg tablet 2 mg PO TIDPRN PRN diarrhea 10/05/23
atorvastatin 80 mg tablet 80 mg PO QPM 10/11/23
buprenorphine 300 mg/1.5 mL solution,exten.rel.subcutaneous syringe (Sublocade) 300 mg SC QMONTH 10/11/23
buprenorphine HCl 8 mg sublingual tablet 16 mg sublingual .[id number] 10/11/23
clonidine HCl 0.1 mg tablet 0.5 mg PO .BIDX2D 10/11/23
clotrimazole 1 % topical cream 1 applic topical BID 10/11/23
ondansetron HCl 4 mg tablet 4 mg PO TIDPRN PRN nausea 10/11/23
promethazine 25 mg tablet 25 mg PO DAILY 10/11/23
Review of Systems
-
History Source: Patient
A 12 point ROS was completed and negative except as noted: Yes
Constitutional: Reports No Symptoms
EENT: Reports No Symptoms
Respiratory: Reports No Symptoms
Cardiac: Reports No Symptoms
Abdomen/GI: Reports No Symptoms
: Reports No Symptoms
Musculoskeletal: Reports No Symptoms
Skin: Reports No Symptoms
Neurological: Reports No Symptoms
Endocrine: Reports No Symptoms
Hematologic/Lymphatic: Reports No Symptoms
Psych: Reports No Symptoms
Physical Exam
Vital Signs
Vital Signs
Pulse Resp BP Pulse Ox
71 23 125/98 98
10/11/23 16:00 10/11/23 16:00 10/11/23 16:00 10/11/23 16:00
Physical Exam
General: Well Developed, Well Nourished and No Apparent Distress
HEENT: NormoCephalic, Moist mucous membranes and Atraumatic
Respiratory: Clear
Cardiac: S1/S2 and Regular Rhythm; No Murmur or Rub
GI: Soft, Non Tender, Non Distended and Normal Bowel Sounds; No Organomegaly
Rectal: Deferred by Provider
Musculoskeletal: No Clubbing, No Cyanosis and No Edema
Skin: No Rash
Neuro: Nonfocal/grossly intact and Other (left sided facial droop, numbness, left upper lower extremity weakness )
Laboratory Results
-
10/11/23 14:56
10/11/23 14:56
Laboratory Results
PT 12.9 Sec (11.4-14.6) 10/11/23 14:56
INR 0.98 10/11/23 14:56
Total Bilirubin 0.5 mg/dl (0.2-1.3) 10/11/23 14:56
AST 41 U/L (17-59) 10/11/23 14:56
ALT 52 U/L (0-50) H 10/11/23 14:56
Alkaline Phosphatase 85 U/L (38-126) 10/11/23 14:56
Data Reviewed
-
Lab Data: Labs Reviewed by me
Old Records: Reviewed
Impression/Plan
-
IMPRESSION:
PLAN:
# Complex migraine vs malingering versus conversion disorder versus right MCA stroke
- Recently TNK given for similar symptoms
-NIH of 12 per neuro
-CTA shows no significant vascular abnormalities
-Recent MRI on 10/04 when patient presented with similar symptoms did not show any acute abnormalities or evidence of CVA
-Loading dose aspirin given
-Valproic acid to be given
-Permissive hypertension up to 220/120 until tomorrow
-MRI brain
-Neurochecks per protocol
-Passed bedside speech evaluation
-Pur�ed diet for now
-PT/OT/speech
-Continue statin
-Neurology following
Old right cerebellar infarct
-2.5 cm present on prior imaging
Stable meningioma
-1.7 cm at the anterior aspect of the left sylvian fissure
Essential hypertension
-Continue clonidine, lisinopril
Recent smoker
Former opiate use
-Continue buprenorphine
Full code
DVT prophylaxis�SCDs
Pur�ed diet
[2023-10-11 17:00] VITALS: BP 144/99
[2023-10-11] MEDS: TORADOL 30 MG IV (18:13)
[2023-10-11 18:30] VITALS: BP 141/94
[2023-10-11] MEDS: SUBUTEX 8 MG SL (20:11)
[2023-10-11] MEDS: LIPITOR 80 MG PO (20:11)
[2023-10-11] MEDS: ISOPTIN 40 MG PO (21:23)
[2023-10-11] MEDS: PEPCID 20 MG PO (21:24)
[2023-10-11] MEDS: COMPAZINE 5 MG IV (21:29)
[2023-10-11] MEDS: PLETAL 100 MG PO (22:07)
[2023-10-11] MEDS: CATAPRES 0.2 MG PO (22:08)
[2023-10-11] MEDS: CATAPRES 0.3 MG PO (22:13)
[2023-10-11] MEDS: SOLU-MEDROL 108 MG IV (22:14)
[2023-10-11 22:48] VITALS: BP 151/96
[2023-10-12 03:20] VITALS: BP 90/58
--- NOTE | 2023-10-12 04:39 | PTCARENOTE ---
Patient was administered a 16 mg dose of Subutex (2 tablets) at 20:11 on 10/10. RN watched patient take medications, guards at bedside. During 4 am neuro checks, this RN found one 8 mg Subutex tablet in the patients sock. Patient new admission, this
was his first dose of Subutex. When asked why this medication was in his sock, patient stated, 'I sometimes take only one because it makes me dizzy.' When this RN asked why patient did not tell her this, patient said it was because his call lozoya
didn't work. Guards in room aware of situation, security notified, Nursing supervisor dyer notified, house provider notified, pharmacy notified. House provider feels patient can receive the remainder of his original 16 mg dose within 24 hours and will
reorder the balance of the dose that was not taken earlier (Subutex 8 mg). Confirmed with pharmacy, remainder dose ordered and to be given now.
--- NOTE | 2023-10-12 04:41 | W.PN.UPDATE ---
Addendum entered and electronically signed by TERRENCE Miller 10/12/23 07:02:
Bolus given and BP remains low BP 80/48, Map 59, HR 74. Patient is asymptomatic, will order NSS 500cc bolus and Midodrine 10mg PO x1.
Addendum entered and electronically signed by TERRENCE Miller 10/12/23 05:21:
held Subutex 8mg (the missed dose) at present. BP 89/45, HR 58, will order 500 nss Iv bolus once.
Original Note:
Update Note
Progress Note Update
RN notified [employer], patient is ordered Subutex 16mg and comes in 2 pills, which was given yesterday at 2030. While nurse was in the morning to do NIH score, found one Subutex pill in his socks. Confirmed with Pharmacist that patient can take the missed
dose within 24 hours, therefore Subutex 8mg SL ordered once. RN is aware to waste the Subutex pill that was found in socks.
[2023-10-12] MEDS: NSS 500 IV ×2 (05:20→06:51)
[2023-10-12] MEDS: ProAmatine 10 MG PO (06:50)
[2023-10-12 08:03] VITALS: BP 82/46
--- NOTE | 2023-10-12 08:18 | PTCARENOTE ---
Patient BP low as noted below
5:10am 89/45 - TT provider, received order for 500 ml bolus
6:09am 80/47 - bolus 1/2 done
6:35am 80/48 - bolus complete, patient asymptomatic, TT provider, received order of Midodrine 10 mg x 1 and 2nd 500 ml bolus, see MAR for administration. Additional dose of Subutex not given due to low BP. Provider aware.
[2023-10-12 08:44] LABS: Hematocrit 37.2 % (39.0-52.0); Hemoglobin 12.8 g/dL (13.0-18.0); Mean Corp Hgb Conc. 34.4 g/dL (33.0-37.0); Mean Corpuscular Hgb 27.7 pg (27.0-31.0); Mean Corpuscular Volume 80.5 fL (80.0-94.0); Platelet Count 298 10^3/uL (130-400); Red Blood Cell Count 4.62 10^6/uL (4.70-6.10); White Blood Cell Count 8.4 10^3/uL (4.8-10.8)
--- NOTE | 2023-10-12 08:53 | W.PN.HOSP.TC ---
Today's Communication/Plan
-
MRI
therapy evals
hold BP meds and give IVF
Assessment / Plan
Assessment / Plan
pt is a 43 year old male
malingering most likely (clearly holds his left arm above his head and will not let it fall on his head)--conversion disorder, complex migraine, right MCA stroke all less likely--Recently TNK given for similar symptoms--CTA shows no significant
vascular abnormalities--Recent MRI on 10/04 when patient presented with similar symptoms did not show any acute abnormalities or evidence of CVA--cont asa, for repeat MRI this AM--pureed diet (passed bedside speech eval)--await PT/OT/formal speech
eval--await neuro input
hypotensive--asymptomatic--hold clonidine, lisinopril, verapamil (isoptin) and subutex (pt pocketing pill in his sock..says he 'should have told the nurse, my bad'--may need psych eval
Old right cerebellar infarct--2.5 cm present on prior imaging
Stable meningioma--1.7 cm at the anterior aspect of the left sylvian fissure
Essential hypertension--now hypotensive--hold clonidine, lisinopril
Recent smoker
Former opiate use--Hold buprenorphine due to dizziness (claims it gives him that in the intermediate) and hypotension
Full code
DVT prophylaxis�SCDs
Anticipated Discharge: 24 - 48 hours
Subjective/Interval History
-
Date of Service: October 12, 2023
pt c/o he cannot move his left arm--when I hold it above his head and let go....he does not let it hit him and holds it above his head
Objective Data
-
Labs:
Laboratory Results
10/12/23
07:59
WBC 8.4
Hgb 12.8 L
Hct 37.2 L
Plt Count 298
Sodium Pending
Potassium Pending
Chloride Pending
Carbon Dioxide Pending
BUN Pending
Creatinine Pending
Glucose Pending
Calcium Pending
Vital Signs:
max temp for 24 hours
10/08/23
12:00
Temp 98.5 F
Vital Signs
Temp Pulse Resp BP Pulse Ox
97.5 F 61 16 82/46 97
10/12/23 08:03 10/12/23 08:03 10/12/23 08:03 10/12/23 08:03 10/12/23 08:03
I&O
10/11/23 10/12/23 10/13/23
06:59 06:59 06:59
Intake Total 740 / 740
Balance 740 / 740
Review of Systems
-
All other systems: Reviewed and negative
Musculoskeletal: Reports Other (can't move left arm.....)
Physical Exam
-
General: Well Developed, Well Nourished and No Apparent Distress
HEENT: Normocephalic and Atraumatic
Respiratory: Clear to Auscultation; Negative Wheezes or Rhonchi
Cardiac: Regular Rhythm and S1/S2; Negative Murmur
GI: Soft, Nontender, Nondistended and Normal Bowel Sounds
Musculoskeletal: No Clubbing, No Cyanosis and No Edema
Neuro: Awake, Alert and Other (clearly holds his left arm above his head and will not let it drop....)
Psych: Calm
[2023-10-12] MEDS: CATAPRES PO ×2 (08:55)
[2023-10-12] MEDS: PHENERGAN 25 MG PO (08:56)
[2023-10-12] MEDS: ISOPTIN PO (08:56)
[2023-10-12] MEDS: SUBUTEX SL (08:57)
[2023-10-12] MEDS: PEPCID 20 MG PO (08:58)
[2023-10-12] MEDS: LOW STRENGTH ASPIRIN 81 MG PO (08:58)
[2023-10-12 09:26] LABS: Blood Urea Nitrogen 18 mg/dl (9-20); Calcium 9.5 mg/dl (8.4-10.2); Carbon Dioxide 23 mmol/L (22-30); Chloride 103 mmol/L (98-107); Estimated Creatinine Clearance 88 ml/min; Glucose 161 mg/dl (70-99); HDL Cholesterol 39 mg/dl; LDL Cholesterol, Calculated 97 mg/dl; Potassium 4.8 mmol/L (3.5-5.1); Sodium 138 mmol/L (135-145); Total Cholesterol 147 mg/dl (50-199); Triglyceride 57 mg/dl (10-149); Very Low Density Lipoprotein 11 mg/dl (0-30); eGFR > 60.00
[2023-10-12 09:58] VITALS: BP 91/55; PULSE 67; O2SAT 98
[2023-10-12 10:01] VITALS: BP 91/55; PULSE 68; O2SAT 96
--- NOTE | 2023-10-12 10:28 | PTOTSP ---
Speech Pathology Clinical Swallow Evaluation
43M with admission for CVA/TIA workup per c/o headache and L sided weakness/numbness p/w an grossly WFL oropharyngeal swallow. Slightly disorganized chew observed with regular solids resulting in scant oral residue on lingual surface. Per MD note,
ddx complex migraine vs malingering vs conversion disorder vs R MCA. MRI planned. Possible psych consult.
Recent admission on 10/03 with similar symptoms, received TNK with negative MRI. Symptoms had resolved by discharge.
Recommend:
1. Regular solids, thin liquids
2. Meds as tolerated
3. General aspiration precautions
4. HR CLERK service to follow up ONLY IF MRI positive for acute change.
[2023-10-12] MEDS: NSS 1000 IV (10:50)
[2023-10-12] MEDS: DEPAKOTE ER (24 HR RELEASE) 500 MG PO (10:58)
[2023-10-12 11:28] VITALS: BP 102/56
--- NOTE | 2023-10-12 11:35 | W.PN.NEURO.1 ---
Today's Communication / Plan
-
43-year-old male with history of complicated migraine who presents with left-sided weakness and hypertension
Plan: IV fluids. Depakote 500 mg daily. Hold blood pressure medications. Aspirin 81 mg daily. Pletal 100 mg bid
Neuro Assessment/Plan
Assessment
43-year-old male with history of complicated migraine drug use who was admitted with left-sided weakness and hypotension
Plan
Hold blood pressure medications.
Continue Depakote 500 daily
Continue aspirin 81 mg daily
Continue Pletal 100 mg twice daily
IV fluids
Subjective/Objective
Subjective Data
Date of Service: October 12, 2023
Patient continues to complain of weakness. Facial asymmetry resolving. Able to left arm and leg, giveaway pattern of weakness
Objective Data
Vital Signs
Temp Pulse Resp BP Pulse Ox
36.5 C 60 16 102/56 98
10/12/23 11:28 10/12/23 11:28 10/12/23 11:28 10/12/23 11:28 10/12/23 11:28
Lab Results
10/12/23 07:59
10/12/23 07:59
PT 12.9 Sec (11.4-14.6) 10/11/23 14:56
INR 0.98 10/11/23 14:56
Sodium 138 mmol/L (135-145) 10/12/23 07:59
Potassium 4.8 mmol/L (3.5-5.1) 10/12/23 07:59
BUN 18 mg/dl (9-20) 10/12/23 07:59
Glucose 161 mg/dl (70-99) H 10/12/23 07:59
Calcium 9.5 mg/dl (8.4-10.2) 10/12/23 07:59
LDL Cholesterol, Calc 97 mg/dl 10/12/23 07:59
Patient Allergies
No Known Allergies Allergy (Verified 10/11/23 15:22)
Physical Exam
-
General: Well Developed, Well Nourished, No Apparent Distress and Comfortable
Eyes: Able to visualize OU, Unremarkable, No Ptosis and PERRLA
HEENT: Normocephalic, Atraumatic, Anicteric and Poor Dentition
Neck: No Bruits Bilaterally and Full Range of Motion
Respiratory: Clear to Auscultation and No Dyspnea
Cardiac: Regular Rhythm and No Murmur
GI: Normal Bowel Sounds, Soft, Non-tender and Non-distended
Skin: Unremarkable and Warm
Extremities: No Clubbing, No Cyanosis and No Edema
Psych: Unremarkable and Intact Judgement/Insight
Extended Neurological Exam
Mood & Affect: Mood Unremarkable and Affect Unremarkable
Attention Span & Concentration: Awake, Alert, Interactive and No Difficulty with 2 Step Request
Memory: Unremarkable, Able to Recall, Recalls Objects and Recalls Short Term
Tremor: Hand Tremor Absent and Head Tremor Absent
Involuntary Movement: None
Speech: Quality Unremarkable, Quantity Unremarkable and Rate of Production Unremarkable
Cranial Nerve II: Left Eye: Pupillary Reactivity Unremarkable, Pupillary Size Unremarkable and Visual [place] Grossly Intact
Cranial Nerve II: Right Eye: Pupillary Reactivity Unremarkable, Pupillary Size Unremarkable and Visual [place] Grossly Intact
Cranial Nerves III, IV, : Extraocular Movement: Extraocular Movement Full in all Directions
Cranial Nerve V: Facial Sensation: Facial Sensation Unremarkable to Cold and Intact to Light Touch
Cranial Nerve VII: Facial Symmetry: Reduced
Cranial Nerve VIII: Hearing: Unremarkable Hearing to Normal Conversational Volume
Cranial Nerves IX, X: Palate Movement: Palate Elevation Symmetric
Cranial Nerve XI: Shoulder Shrug: Unremarkable
Cranial Nerve XII: Tongue Protusion: Midline
Muscle Strength, Overall: Reduced on Left
Muscle Bulk & Tone: Bulk Unremarkable and Tone Unremarkable
Pronator Drift: Drift in Left Upper Extremity
Deep Tendon Reflexes: Unremarkable Throughout
Cold Sensation: Unremarkable
Vibration Sensation: Unremarkable
Touch Sensation: Unremarkable and Double Simultaneous Stimulation Unremarkable
Coordination: [id number] Testing Unremarkable
Babinski Sign: Absent Bilaterally
Gait & Station: Up from Lying with Difficulty
Modified Davidson Score (MRS)
-
Modified Domenic Scale (mRS): No significant disability. Able to carry out usual activities.
Score: 1
--- NOTE | 2023-10-12 11:58 | CM ---
Pt from [facility]. Admitted with complex migraine
Pt to return to [facility] at discharge
Call [facility] at discharge
Plan - Anticipate return to [facility] when medically ready
R - [phone]
F - [phone]
--- NOTE | 2023-10-12 13:27 | W.DCSUMMARY ---
Discharge Summary
Discharge Data
Date of Admission: 10/11/23
Date of Discharge: 10/12/23
-
Pending Results: No
Hospital Course
Primary care physician : Custodial
Principal Discharge diagnosis : Strokelike symptoms high concern for malingering, hypotensive
Chronic Discharge diagnosis : Old right cerebellar infarct, stable meningioma, essential hypertension, former opiate use
Hospital Course : Patient is a 43-year-old male who had a recent hospitalization for a presumed right MCA stroke status post TNK who presented back from the alf with a left frontal headache, left facial droop, left facial numbness, left upper
extremity and left lower extremity weakness. Headache was constant and associated with some sensitivity to light. Patient had similar symptoms on 10/04/2023 and received TNK at that time with a negative MRI symptoms resolved at discharge. He has
been readmitted.
Problem #1: Strokelike symptoms with high concern for malingering. Patient was recently admitted and got lytic therapy despite having a negative MRI. Symptoms could be related to complicated migraine. Patient was seen in consultation by
neurology. He was started on Depakote which he was advised to continue. MRI this admission was again negative. Concern for malingering was happening because patient's neurologic exam was not consistent with somebody having weakness to his left
upper and lower extremities. (For example, he would not move his left arm due to 'weakness' but when the arm was held over his head, he kept it there and did not let it drop or hit his head or face). Physical therapy also described him grabbing his
left lower extremity with his left arm and moving his left leg while working with them. He was able to ambulate on his own to the bathroom as documented.
Problem #2: Hypotensive. Patient did receive IV fluids with improvement in his blood pressure. This was likely due to all of his blood pressure medications. Clonidine was stopped, lisinopril was stopped, verapamil was stopped. In addition,
patient was on 16 mg of Subutex daily at which time he says that it makes him dizzy when he takes it. This was placed on hold at discharge and likely will need either to stop it altogether or a lowered dose from 16 mg. Will defer that to his
physician at the present.
Problem #3: All other medical issues. These include Old right cerebellar infarct, stable meningioma, essential hypertension, former opiate use. These medical issues were stable during his hospitalization. Medications were continued as able.
Patient is stable to return to the alf at this time. If there are any questions regarding this dictation or his hospital stay, please do not hesitate to call. Our office number is [phone].
Important imaging findings :
MRI BRAIN IMPRESSION:
No MRI evidence for an acute infarct. Stable chronic findings, as detailed above.
HEAD AND NECK CTA IMPRESSION:
Stable 1.7 cm meningioma at the anterior aspect of the left sylvian fissure.
No significant vascular abnormalities are demonstrated.
HEAD CT IMPRESSION:
There are no acute intracranial abnormalities.
There is old 2.5 cm right cerebellar infarct
Discharge Plan
-
Patient Disposition: Custodial
Discharge Diagnosis/Procedures: Strokelike symptoms high concern for malingering, hypotensive likely secondary to blood pressure medications and Subutex, old right cerebellar infarct, stable meningioma, essential hypertension, former opiate use
Condition: Good
Diet: Regular
Activity: As tolerated
Driving Restrictions: Not until seen by your Dr
Bathing Restrictions: None
Referrals:
[facility] [Family Provider] - in less than 1 week
Prescriptions:
New
cilostazol 100 mg Tablet
100 mg PO BID Qty: 0 0RF
divalproex 500 mg Tablet Extended Release 24 Hr
500 mg PO DAILY Qty: 20 0RF
atorvastatin 20 mg Tablet
20 mg PO QPM Qty: 30 0RF
Continued
loperamide 2 mg Tablet
2 mg PO TIDPRN PRN (Reason: diarrhea)
aspirin 81 mg Tablet,Chewable
81 mg PO DAILY
ondansetron HCl 4 mg Tablet
4 mg PO TIDPRN PRN (Reason: nausea)
clotrimazole 1 % Cream
1 applic TOPICAL BID Qty: 0 0RF
Held
lisinopril 20 mg Tablet
20 mg PO DAILY
Hold Instructions: BP has been low, discuss need for continuing
promethazine 25 mg Tablet
25 mg PO DAILY
Hold Instructions: discuss whether this is needed as a daily medication....
Sublocade 300 mg/1.5 mL Solution, Extended Rel Syringe
300 mg SC QMONTH
Hold Instructions: discuss need to continue
buprenorphine HCl 8 mg Tablet, Sublingual
16 mg SUBLINGUAL .[id number]
Hold Instructions: discuss lowering this medication as you states that it makes you dizzy--8mg might be better vs stopping altogether
Rx Instructions:
take from 10/09/23-10/11/23
Discontinued
clonidine HCl 0.1 mg Tablet
0.5 mg PO .[id number]
Rx Instructions:
take on 10/10/23-10/11/23
atorvastatin 80 mg tablet
80 mg PO QPM
Discharge Orders:
Discharge Patient (As Directed); Ordered 10/12/23
Ordered By: Maria Elena Taylor
Discharge Date and Time
Print Language: [place]
[2023-10-12 14:46] VITALS: BP 92/59
== END 2023-10-12 15:34 ==
LOC: 3 WEST ACU 16:36
PROVIDERS: ADMITTING PHYSICIAN Hospitalist; ATTENDING PHYSICIAN Internal Medicine; EMERGENCY PHYSICIAN Emergency Medicine; OTHER PHYSICIAN Psychiatry & Neurology Neurology
DX: R51.9 Headache, unspecified (principal); R53.1 Weakness; I95.9 Hypotension, unspecified; E78.00 Pure hypercholesterolemia, unspecified; I10 Essential (primary) hypertension; R29.810 Facial weakness; R47.1 Dysarthria and anarthria; F17.200 Nicotine dependence, unspecified, uncomplicated; F11.11 Opioid abuse, in remission; D32.0 Benign neoplasm of cerebral meninges; Z76.5 Malingerer [conscious simulation]; Z86.73 Personal history of transient ischemic attack (TIA), and cerebral infarction without residual deficits; Z79.82 Long term (current) use of aspirin
CPT/HCPCS: 70450; 70496; 70498; 70551; 80048; 80053; 80061; 82962; 85025; 85027; 85610; 87070; 92610; 93005; 96365; 97163; 97167; 99291; 99406; Q9967